=== PATIENT | male | born 1940 | race Caucasian/White ===

== ENCOUNTER → 2016-11-17 | Outpatient (CLI) | payer MEDICARE, OTHER ==
[~2016-11-17] MED LIST: ALLO300T2 PO; ASP81TEC PO; ASPI-983 PO; ATRV10T PO; CATHETER FLUSH 10 ML SYR IV PRN; CLCX200C PO; CLOP75TA28 PO; CLOP75TA69 PO; FERR325C PO; FERR325T24 PO; METO-351 PO; MULT-974 PO; OMEP20TA7 PO; TADA20TA PO; TRAZ100T92 PO; VALS1TAB15 PO
--- OUTSIDE RECORDS SUMMARY | 2016-11-17 11:46 | XMS REPORT | Continuity of Care Document ---
Author Author [facility] Organization [facility] Address Unknown Phone Unavailable Care Team Providers Care Pbx Mechanic Name Role Phone BRIGIDA PRECIADO MD PCP Insurance Providers Payer Name Policy Number Subscriber Name Relationship [employer] [id number] Jeremy Hemphill 18 Self / Same As Patient [id number] Jeremy Hemphill 20 Self / Same As Patient Advance Directives Directive Response Recorded Date/Time Advance Directives No 10/23/14 9:11am Health Care Power of Aligner Barrel And Receiver No 10/23/14 9:11am Organ Donor Yes 10/23/14 9:11am Resuscitation Status Full Code 10/23/14 9:11am Problems No known problems or medical conditions. Medications Medication Dose Route Sig Days/Qty Instructions Order Date Discontinued Date Status HCTZ/Valsartan 1 Each PO DAILY 09/18/11 Active Celecoxib 1 Each PO DAILY 09/18/11 Active Atorvastatin Calcium 1 Each PO DAILY 09/18/11 Active Aspirin 81 Mg PO DAILY 09/18/11 10/23/14 Discontinued Social History Social History Problem Response Recorded Date/Time Recent Foreign Travel No 10/23/2014 9:07am Smoking Status Never a Smoker 10/23/2014 9:05am Do you dip or chew tobacco? No 10/23/2014 9:05am Query Response Start Date Stop Date Smoking Status Never a Smoker Hospital Discharge Instructions No hospital discharge instructions. Plan of Care No plan of care. Functional Status No functional status results. Allergies, Adverse Reactions, Alerts Allergen Type Severity Reaction Status Last Updated No Known Drug Allergies Active 09/18/11 Immunizations Name Given Type Date of Influenza Vaccine 09/22/14 Historical Vital Signs Acute Vital Signs Vital Response Date/Time Temperature (Fahrenheit) 96.9 degrees F (97.6 - 99.5) Temperature (Calculated Celsius) 36.74540 degrees C (36.4 - 37.5) Temperature Source Tympanic Pulse Rate (adult) 50 bpm (60 - 90) Respiratory Rate 20 bpm (12 - 24) O2 Sat by Pulse Oximetry 94 % (88 - 100) Blood Pressure 127/76 mm Hg Pain Pain Intensity 0 Height (Feet) 5 feet Height (Inches) 8.00 inches Height (Calculated Centimeters) 172.634164 cm Weight (Pounds) 220 pounds Weight (Calculated Grams) 94359.322 gm Weight (Calculated Kilograms) 99.841437 kilograms Calculated BMI 33.45 Results No known relevant diagnostic tests, laboratory data and/or discharge summary. Procedures No known history of procedures. Encounters Encounter Location Date/Time Registered [facility] 10/23/14 7:57am Registered Clinic [facility] 10/17/14 7:17am
[2016-11-17 13:30] VITALS: BP 176/83
--- NOTE | 2016-11-19 08:13 | STRESS TEST ---
PROCEDURE PHYSICIAN: DAVID BROOKE DATE OF PROCEDURE: 11/17/2016 RESTING AND POST EXERCISE TECHNETIUM 99M TETROFOSMIN SPECT CT IMAGING: ORDERING PHYSICIAN: Amberly Oakley APRN PRIMARY PHYSICIAN: Dr. Malhotra OTHER PHYSICIAN: Dr. Brooke CLINICAL DIAGNOSIS: 1. Coronary artery disease. 2. Hypertension. 3. Hyperlipidemia. Baseline images were carried out after injection of 9.93 mCi technetium 99m tetrofosmin. Subsequently, exercise on a treadmill was carried out. Phil protocol was employed. Blood pressure response to exercise was somewhat hypertensive. Isolated premature contractions were seen during this study including couplets. There were no runs of ventricular tachycardia. After he had attained more than 85% of maximum heart rate, 29 mCi of technetium 99m tetrofosmin were injected and the exercise was continued for another minute. Exercise was stopped on account of fatigue. There was considerable baseline artifact at peak exercise. In the recovery phase, there appears to be approximately [address] segment depression. Review of images at rest and following stress, indicates a small to moderate basal inferior perfusion defect which is predominantly transient. Gated images show normal global left ventricular systolic function with normal regional wall motion. Left ventricular ejection fraction is calculated to be 52%. Left ventricular end-diastolic volume is 39 mL. TID is absent (1.05). CONCLUSIONS: 1. The study is indicative of a small to moderate amount of basal inferior ischemia. 2. Normal wall motion. 3. Normal global left ventricular systolic function with a calculated ejection fraction of 60%. 4. Normal left ventricular cavity size. 5. Frequent isolated and coupled premature ventricular ectopy during the study. 6. Hypertensive response of blood pressure to exercise. Job ID: [id number] Dictated Date: 11/18/2016 13:09:39 Media Supervisor Date: 11/19/2016 08:07:17 / yogi
== END ==
LOC: CARD 11:42
PROVIDERS: ATTEND Nurse Practitioner Family
DX: I25.10 Atherosclerotic heart disease of native coronary artery without angina pectoris (principal); I65.23 Occlusion and stenosis of bilateral carotid arteries; I10 Essential (primary) hypertension; E78.4 Other hyperlipidemia
CPT/HCPCS: 78452; 93017

== ENCOUNTER → 2017-06-17 | Outpatient (CLI) | payer MEDICARE, OTHER ==
[~2017-06-17] MED LIST changes: -CATHETER FLUSH 10 ML SYR IV PRN; +methylPREDNISolone 80 MG/ML (DEPO MEDROL) VIAL ONE
[2017-06-17 15:14] VITALS: BP 182/94
--- NOTE | 2017-06-22 12:09 | OPERATIVE REPORT ---
DATE OF SERVICE: DIAGNOSIS: Lumbar radiculopathy. PROCEDURE: Fluoroscopic guided interlaminar epidural steroid injection. PROCEDURE IN DETAIL: After obtaining informed consent from the patient, the patient's chart was reviewed. The patient was then brought to the procedure room and placed in the prone position. A timeout was performed. The back was prepped with antiseptic solution and under fluoro guidance, the patient's lumbar spine was identified at the level of L5-S1. The L5-S1 vertebra was identified with fluoro guidance and approximately 2 mL of 1.5% lidocaine solution was used to anesthetize the skin directly down to the pedicle of the L5-S1 and under fluoroscopic guidance, the tract was anesthetized up to the interlaminar space and the ligamentum flavum. This needle was withdrawn. Then, a 20-gauge 3.5 inch Tuohy needle was then directed following the same tract that was anesthetized with the spinal needle. Using loss of resistance, the epidural space was identified and then the syringe was switched for contrast solution which was injected, approximately 1 mL. After secondary confirmation of epidural access, another syringe was placed and 80 mg of Depo-Medrol was injected. The Tuohy needle was then flushed out with approximately 2 mL of the normal saline used from the loss of resistance syringe. Band-Aids were applied to all the procedure sites. The patient tolerated the procedure well and was taken to the recovery room in stable condition. COMPLICATIONS: None. Job ID: [id number] DocumentID: [id number] Dictated Date: 06/21/2017 10:47:27 Bi Lead Date: 06/21/2017 12:13:38 Dictated By: ALMAS CORONA DO
== END ==
LOC: CARD 14:44
PROVIDERS: ATTEND Pain Medicine Interventional Pain Medicine
DX: M54.16 Radiculopathy, lumbar region (principal); Z79.84 Long term (current) use of oral hypoglycemic drugs; Z79.899 Other long term (current) drug therapy
CPT/HCPCS: 62323

== ENCOUNTER → 2017-09-07 | Outpatient (CLI) | payer MEDICARE, OTHER ==
[~2017-09-07] MED LIST changes: -methylPREDNISolone 80 MG/ML (DEPO MEDROL) VIAL ONE
== END ==
LOC: CARD 13:00
PROVIDERS: ATTEND Internal Medicine Cardiovascular Disease
DX: I25.10 Atherosclerotic heart disease of native coronary artery without angina pectoris (principal); I65.23 Occlusion and stenosis of bilateral carotid arteries; E78.4 Other hyperlipidemia; E66.8 Other obesity; R73.01 Impaired fasting glucose
CPT/HCPCS: 93306; 93351

== ENCOUNTER 2017-10-26 07:52 | Day surgery (SDC) | payer MEDICARE, OTHER ==
[~2017-10-26] VITALS: Ht 172.7 cm; Wt 103.0 kg
[2017-10-26] VITALS (10 sets, daily range): BP systolic 119–165; BP diastolic 64–97
--- OUTSIDE RECORDS SUMMARY | 2017-10-26 07:54 | XMS REPORT ---
Author Author [facility] Medical Staff Organization [facility] Address [phone] [place], [place] [id number] Phone [phone] Summary purpose CCDA Sent to [facility] Chief Complaint and Reason for Visit Admit Diagnosis 1 SHOULDER JOINT REPLACEME Problem list No authorized problems tracked for continuity of care are available for this visit. Encounters No authorized problems tracked for encounter diagnoses are available for this visit. Medications No home medications recorded for this patient visit Allergies, adverse reactions, alerts No allergy information is available for this patient. Immunizations No immunizations recorded for this patient visit Relevant diagnostic tests and/or laboratory data No authorized results are available for this patient visit History of procedures Procedure Code Code Type Description Date Performed Performing Physician [id number] CPT-4 X-RAY EXAM OF SHOULDER 02-12-2015 JOAN GRAHAM Functional status No functional or cognitive status observations are available for this visit. Vital signs No authorized vital signs are available for this visit. Social history No Social History or smoking status observations were recorded for this visit. ( Unknown if ever smoked.) Treatment Plan No treatment plan text is available for this visit. Hospital discharge instructions No discharge instruction text is available for this visit.
--- OUTSIDE RECORDS SUMMARY | 2017-10-26 07:55 | XMS REPORT | Continuity of Care Document ---
Author Author [facility] Organization [facility] Address Unknown Phone Unavailable Allergies Active Description Code Type Severity Reaction Onset Reported/Identified Relationship to Patient Clinical Status Yes No Known Drug Allergies [id number] Drug Allergy Unknown N/A 09/18/2011 Medications There is no data. Problems Date Dx Coded Attending Type Code Diagnosis Diagnosed By 09/09/1199 MASHA LOUISE FACC, DAVID PIRES CCDS Ot Z48.812 ENCNTR FOR SURGICAL AFTCR FOLLOWING SURG 09/09/1199 DAVID FLANAGAN MD, FACC, FACP CCDS Ot Z95.5 PRESENCE OF CORONARY ANGIOPLASTY IMPLANT 09/18/2011 Ot 562.10 DIVERTICULOSIS COLON (W/O MENT OF HEMORR 09/18/2011 Ot 600.00 HYPERTROPHY (BENIGN) OF PROSTATE W/O URI 09/18/2011 Ot V12.72 PERSONAL HISTORY OF COLONIC POLYPS 09/18/2011 Ot V76.51 SCREEN MAL NEOP-COLON 01/28/2012 Ot 787.91 DIARRHEA 01/28/2012 Ot 789.00 ABDOMINAL PAIN, UNSPECIFIED SITE 09/13/2014 Ot 787.91 09/13/2014 Ot 789.00 09/18/2014 Ot 787.91 09/18/2014 Ot 789.00 10/18/2014 BRIGIDA PRECIADO MD Ot V72.84 10/23/2014 Ot 787.91 10/23/2014 Ot 789.00 10/23/2014 BRIGIDA PRECIADO MD Ot V72.84 10/23/2014 BRIGIDA PRECIADO MD Ot V72.84 10/23/2014 BRIGIDA PRECIADO MD Ot 211.3 BENIGN NEOPLASM LG BOWEL 10/23/2014 BRIGIDA PRECIADO MD Ot 562.10 DIVERTICULOSIS COLON (W/O MENT OF HEMORR 10/23/2014 BRIGIDA PRECIADO MD Ot V76.51 SCREEN MAL NEOP-COLON 01/30/2015 BRIGIDA PRECIADO MD Ot V72.84 01/30/2015 BRIGIDA PRECIADO MD Ot V72.84 02/12/2015 SANTOS LOUSIE, JOAN Earl V43.61 SHOULDER JOINT REPLACEME 01/29/2016 ILANA LOUISE, BRIGIDA Earl Ot D50.9 IRON DEFICIENCY ANEMIA, UNSPECIFIED 01/29/2016 ILANA LOUISE, BRIGIDA Earl Ot Z01.818 ENCOUNTER FOR OTHER PREPROCEDURAL EXAMIN 01/30/2016 BRIGIDA PRECIADO MD, Ot D50.9 IRON DEFICIENCY ANEMIA, UNSPECIFIED 01/30/2016 ILANA LOUISE, BRIGIDA Earl Ot Z01.818 ENCOUNTER FOR OTHER PREPROCEDURAL EXAMIN 01/31/2016 BRIGIDA PRECIADO MD, Ot D50.9 IRON DEFICIENCY ANEMIA, UNSPECIFIED 01/31/2016 ILANA LOUISE, BRIGIDA Earl Ot K44.9 DIAPHRAGMATIC HERNIA WITHOUT OBSTRUCTION 01/31/2016 ILANA LOUISE, BRIGIDA Earl Ot Z86.010 PERSONAL HISTORY OF COLONIC POLYPS 02/06/2016 ILANA LOUISE, BRIGIDA Earl Ot D50.9 IRON DEFICIENCY ANEMIA, UNSPECIFIED 02/06/2016 ILANA LOUISE, BRIGIDA Earl Ot Z01.818 ENCOUNTER FOR OTHER PREPROCEDURAL EXAMIN 02/07/2016 BRIGIDA PRECIADO MD, Ot D50.9 IRON DEFICIENCY ANEMIA, UNSPECIFIED 02/07/2016 ILANA LOUISE, BRIGIDA Earl Ot Z01.818 ENCOUNTER FOR OTHER PREPROCEDURAL EXAMIN 02/07/2016 BRIGIDA PRECIADO MD Ot D50.9 IRON DEFICIENCY ANEMIA, UNSPECIFIED 02/07/2016 BRIGIDA PRECIADO MD Ot K57.30 DVRTCLOS OF LG INT W/O PERFORATION OR AB 02/07/2016 BRIGIDA PRECIADO MD Ot K63.5 POLYP OF COLON 02/10/2016 BRIGIDA PRECIADO MD Ot D50.9 IRON DEFICIENCY ANEMIA, UNSPECIFIED 02/10/2016 BRIGIDA PRECIADO MD Ot K57.30 DVRTCLOS OF LG INT W/O PERFORATION OR AB 02/10/2016 BRIGIDA PRECIADO MD Ot K63.5 POLYP OF COLON 02/11/2016 BRIGIDA PRECIADO MD Ot D50.9 IRON DEFICIENCY ANEMIA, UNSPECIFIED 02/11/2016 BRIGIDA PRECIADO MD Ot K57.30 DVRTCLOS OF LG INT W/O PERFORATION OR AB 02/11/2016 BRIGIDA PRECIADO MD Ot K63.5 POLYP OF COLON 02/18/2016 Ot 787.91 DIARRHEA 02/18/2016 Ot 789.00 ABDOMINAL PAIN, UNSPECIFIED SITE 02/18/2016 ILANA LOUISE, BRIGIDA Earl Ot V72.84 EXAM PRE-OPERATIVE NOS 02/18/2016 BRIGIDA PRECIADO MD Ot V72.84 EXAM PRE-OPERATIVE NOS 02/19/2016 MASHA LOUISE FACC, ALI FACP CCDS Ot D50.9 IRON DEFICIENCY ANEMIA, UNSPECIFIED 02/19/2016 MASHA LOUISE FACC, ALI FACP CCDS Ot E78.0 PURE HYPERCHOLESTEROLEMIA 02/19/2016 MASHA LOUISE FACC, ALI FACP CCDS Ot I12.9 HYPERTENSIVE CHRONIC KIDNEY DISEASE W ST 02/19/2016 MASHA LOUISE FACC, ALI FACP CCDS Ot I25.110 ATHSCL HEART DISEASE OF [place] COR ART W 02/19/2016 MASHA LOUISE FACC, ALI FACP CCDS Ot I25.84 CORONARY ATHEROSCLEROSIS DUE TO CALCIFIE 02/19/2016 MASHA LOUISE FACC, ALI FACP CCDS Ot N18.4 CHRONIC KIDNEY DISEASE, STAGE 4 (SEVERE) 02/19/2016 MASHA LOUISE FACC, ALI FACP CCDS Ot Z79.899 OTHER FOREIGN CORRESPONDENT (CURRENT) DRUG THERAPY 02/24/2016 EMMY GALLAGHER L [employer]URAL MAIL [employer] Ot E78.0 PURE HYPERCHOLESTEROLEMIA 02/24/2016 DEYA GALLAGHERHER L RURAL MAIL [employer]OR Ot I10 ESSENTIAL (PRIMARY) HYPERTENSION 02/24/2016 EMMY GALLAGHER L [employer] MAIL [employer]OR Ot I25.119 ATHSCL HEART DISEASE OF [place] ART W 02/24/2016 EMMY GALLAGHER L [employer] MAIL [employer] Ot R06.02 SHORTNESS OF BREATH 02/24/2016 EMMY GALLAGHER L [employer] MAIL [employer] Ot R73.01 IMPAIRED FASTING GLUCOSE 02/24/2016 DEYA GALLAGHERHER L RURAL MAIL [employer]OR Ot Z86.2 PRSNL HISTORY OF DIS OF THE BLD/BLD-FORM 02/24/2016 EMMY GALLAGHER L [employer]URAL MAIL [employer] Ot Z95.5 PRESENCE OF CORONARY ANGIOPLASTY IMPLANT 02/25/2016 EMMY GALLAGHER L [employer]URAL MAIL [employer]OR Ot D64.9 ANEMIA, UNSPECIFIED 02/25/2016 EMMY GALLAGHER L RURAL MAIL [employer]OR Ot E78.0 PURE HYPERCHOLESTEROLEMIA 02/25/2016 EMMY GALLAGHER L RURAL MAIL [employer]OR Ot I10 ESSENTIAL (PRIMARY) HYPERTENSION 02/25/2016 BAIMA, EMMY L RURAL MAIL [employer]OR Ot I25.10 ATHSCL HEART DISEASE OF [place] CORONARY 02/25/2016 DEYA GALLAGHERHER L RURAL MAIL [employer]OR Ot R06.02 SHORTNESS OF BREATH 03/02/2016 MASHA LOUISE FACC, ALI FACP CCDS Ot D50.9 IRON DEFICIENCY ANEMIA, UNSPECIFIED 03/02/2016 MASHA LOUISE FACC, ALI FACP CCDS Ot E78.0 PURE HYPERCHOLESTEROLEMIA 03/02/2016 MASHA LOUISE FACC, ALI FACP CCDS Ot I12.9 HYPERTENSIVE CHRONIC KIDNEY DISEASE W ST 03/02/2016 MASHA ALMARAZC, ALI FACP CCDS Ot I25.110 ATHSCL HEART DISEASE OF [place] ART W 03/02/2016 MASHA LOUISE FACC, ALI FACP CCDS Ot I25.84 CORONARY ATHEROSCLEROSIS DUE TO CALCIFIE 03/02/2016 MASHA LOUISE FACC, ALI FACP CCDS Ot N18.4 CHRONIC KIDNEY DISEASE, STAGE 4 (SEVERE) 03/02/2016 MASHA LOUISE FACC, ALI FACP CCDS Ot Z79.899 OTHER SNF (CURRENT) DRUG THERAPY 03/17/2016 DEYA GALLAGHERHER L [employer] MAIL [employer] Ot E78.0 PURE HYPERCHOLESTEROLEMIA 03/17/2016 ELLIOTT EMMY L RURAL MAIL [employer]OR Ot I10 ESSENTIAL (PRIMARY) HYPERTENSION 03/17/2016 ELLIOTT EMMY L RURAL MAIL [employer]OR Ot I25.119 ATHSCL HEART DISEASE OF [place] ART W 03/17/2016 LORENGOLDIE EMMY L [employer] MAIL [employer]OR Ot R06.02 SHORTNESS OF BREATH 03/17/2016 DEYA GALLAGHERHER L [employer] MAIL [employer]OR Ot R73.01 IMPAIRED FASTING GLUCOSE 03/17/2016 DEYA GALLAGHERHER L R[employer] MAIL [employer]OR Ot Z86.2 PRSNL HISTORY OF DIS OF THE BLD/BLD-FORM 03/17/2016 DEYA GALLAGHERHER L [employer] MAIL [employer]OR Ot Z95.5 PRESENCE OF CORONARY ANGIOPLASTY IMPLANT 03/27/2016 DEYA GALLAGHERHER L [employer] MAIL [employer]OR Ot D64.9 ANEMIA, UNSPECIFIED 03/27/2016 ELLIOTT EMMY L RURAL MAIL [employer]OR Ot E78.0 PURE HYPERCHOLESTEROLEMIA 03/27/2016 LORENMA EMMY L [employer]URAL MAIL [employer]OR Ot I10 ESSENTIAL (PRIMARY) HYPERTENSION 03/27/2016 ELLIOTT EMMY L RURAL MAIL [employer]OR Ot I25.10 ATHSCL HEART DISEASE OF [place] CORONARY 03/27/2016 DEYA GALLAGHERHER L R[employer] MAIL [employer]OR Ot R06.02 SHORTNESS OF BREATH 04/15/2016 MASHA LOUISE FACC, ALI FACP CCDS Ot Z48.812 ENCNTR FOR SURGICAL AFTCR FOLLOWING SURG 04/15/2016 MASHA LOUISE FAC, ALI FACP CCDS Ot Z95.5 PRESENCE OF CORONARY ANGIOPLASTY IMPLANT 04/21/2016 MASHA LOUISE FACSean, ALI FACP CCDS Ot Z48.812 ENCNTR FOR SURGICAL AFTCR FOLLOWING SURG 04/21/2016 MASHA LOIUSE FAC, ALI FACP CCDS Ot Z95.5 PRESENCE OF CORONARY ANGIOPLASTY IMPLANT 05/02/2016 BRIGIDA PRECIADO MD Ot D50.0 IRON DEFICIENCY ANEMIA SECONDARY TO BLOO 05/02/2016 BRIGIDA PRECIADO MD Ot E78.5 HYPERLIPIDEMIA, UNSPECIFIED 05/02/2016 BRIGIDA PRECIADO MD Ot E86.1 HYPOVOLEMIA 05/02/2016 BRIGIDA PRECIADO MD Ot I10 ESSENTIAL (PRIMARY) HYPERTENSION 05/02/2016 BRIGIDA PRECIADO MD Ot I25.10 ATHSCL HEART DISEASE OF [place] CORONARY 05/02/2016 BRIGIDA PRECIADO MD Ot K55.20 ANGIODYSPLASIA OF COLON WITHOUT HEMORRHA 05/02/2016 BRIGIDA PRECIADO MD Ot K57.30 DVRTCLOS OF LG INT W/O PERFORATION OR AB 05/02/2016 BRIGIDA PRECIADO MD Ot K92.2 GASTROINTESTINAL HEMORRHAGE, UNSPECIFIED 05/02/2016 BRIGIDA PRECIADO MD Ot Z79.02 FOREIGN CORRESPONDENT (CURRENT) USE OF ANTITHROMBOTI 05/02/2016 BRIGIDA PRECIADO MD Ot Z95.5 PRESENCE OF CORONARY ANGIOPLASTY IMPLANT 05/02/2016 BRIGIDA PRECIADO MD Ot D50.0 IRON DEFICIENCY ANEMIA SECONDARY TO BLOO 05/02/2016 BRIGIDA PRECIADO MD, Ot E78.5 HYPERLIPIDEMIA, UNSPECIFIED 05/02/2016 BRIGIDA PRECIADO MD Ot E86.1 HYPOVOLEMIA 05/02/2016 BRIGIDA PRECIADO MD Ot I10 ESSENTIAL (PRIMARY) HYPERTENSION 05/02/2016 BRIGIDA PRECIADO MD Ot I25.10 ATHSCL HEART DISEASE OF [place] CORONARY 05/02/2016 BRIGIDA PRECIADO MD Ot K55.20 ANGIODYSPLASIA OF COLON WITHOUT HEMORRHA 05/02/2016 BRIGIDA PRECIADO MD, Ot K57.30 DVRTCLOS OF LG INT W/O PERFORATION OR AB 05/02/2016 BRIGIDA PRECIADO MD Ot K92.2 GASTROINTESTINAL HEMORRHAGE, UNSPECIFIED 05/02/2016 BRIGIDA PRECIADO MD Ot Z79.02 FOREIGN CORRESPONDENT (CURRENT) USE OF ANTITHROMBOTI 05/02/2016 BRIGIDA PRECIADO MD Ot Z95.5 PRESENCE OF CORONARY ANGIOPLASTY IMPLANT 06/16/2016 MASHA LOUISE FAC, ALI FACP CCDS Ot Z48.812 ENCNTR FOR SURGICAL AFTCR FOLLOWING SURG 06/16/2016 MASHA LOUISE FACC, ALI FACP CCDS Ot Z95.5 PRESENCE OF CORONARY ANGIOPLASTY IMPLANT 07/01/2016 MASHA LOUISE FACC, ALI FACP CCDS Ot Z48.812 ENCNTR FOR SURGICAL AFTCR FOLLOWING SURG 07/01/2016 MASHA LOUISE FACSean, ALI FACP CCDS Ot Z95.5 PRESENCE OF CORONARY ANGIOPLASTY IMPLANT 08/25/2016 Ot 787.91 DIARRHEA 08/25/2016 Ot 789.00 ABDOMINAL PAIN, UNSPECIFIED SITE 08/25/2016 BRIGIDA PRECIADO MD Ot V72.84 EXAM PRE-OPERATIVE NOS 08/25/2016 BRIGIDA PRECIADO MD Ot V72.84 EXAM PRE-OPERATIVE NOS 08/25/2016 EMMY GALLAGHER L [employer] MAIL [employer] Ot E78.0 PURE HYPERCHOLESTEROLEMIA 08/25/2016 ELLIOTT EMMY L [employer] MAIL [employer]OR Ot I10 ESSENTIAL (PRIMARY) HYPERTENSION 08/25/2016 EMMY GALLAGHER L [employer] MAIL [employer]OR Ot I25.119 ATHSCL HEART DISEASE OF [place] ART W 08/25/2016 EMMY GALLAGHER L [employer] MAIL [employer]OR Ot R06.02 SHORTNESS OF BREATH 08/25/2016 ELLIOTT EMMY L [employer]URAL MAIL [employer]OR Ot R73.01 IMPAIRED FASTING GLUCOSE 08/25/2016 DEYA GALLAGHERHER L [employer] MAIL [employer] Ot Z86.2 PRSNL HISTORY OF DIS OF THE BLD/BLD-FORM 08/25/2016 DEYA GALLAGHERHER L RURAL MAIL [employer]OR Ot Z95.5 PRESENCE OF CORONARY ANGIOPLASTY IMPLANT 08/25/2016 DEYA GALLAGHERHER L [employer] MAIL [employer]OR Ot D64.9 ANEMIA, UNSPECIFIED 08/25/2016 ELLIOTT EMMY L RURAL MAIL [employer]OR Ot E78.0 PURE HYPERCHOLESTEROLEMIA 08/25/2016 ELLIOTT EMMY L RURAL MAIL [employer]OR Ot I10 ESSENTIAL (PRIMARY) HYPERTENSION 08/25/2016 EMMY GALLAGHER RURAL MAIL [employer]OR Ot I25.10 ATHSCL HEART DISEASE OF [place] CORONARY 08/25/2016 EMMY GALLAGHER [employer] MAIL [employer]OR Ot R06.02 SHORTNESS OF BREATH 08/26/2016 BRIANDA SERRANO MD Ot M51.37 OTHER INTERVERTEBRAL DISC DEGENERATION, 08/26/2016 BRIANDA SERRANO MD Ot M51.37 OTHER INTERVERTEBRAL DISC DEGENERATION, 08/31/2016 BRIANDA SERRANO MD Ot M51.37 OTHER INTERVERTEBRAL DISC DEGENERATION, 09/08/2016 MASHA ALMARAZC, ALI FACP CCDS Ot I10 ESSENTIAL (PRIMARY) HYPERTENSION 09/08/2016 MASHA ALMARAZC, ALI FACP CCDS Ot I25.10 ATHSCL HEART DISEASE OF [place] CORONARY 09/08/2016 MASHA ALMARAZC, ALI FACP CCDS Ot I65.23 OCCLUSION AND STENOSIS OF [place] 09/08/2016 MASHA LOUISE FACC, ALI FACP CCDS Ot R73.01 IMPAIRED FASTING GLUCOSE 09/08/2016 MASHA LOUISE FACC, ALI FACP CCDS Ot Z86.2 PRSNL HISTORY OF DIS OF THE BLD/BLD-FORM 09/15/2016 BRIANDA SERRANO MD Ot M51.37 OTHER INTERVERTEBRAL DISC DEGENERATION, 09/28/2016 MASHA LOUISE FACC, ALI FACP CCDS Ot I25.10 ATHSCL HEART DISEASE OF [place] CORONARY 09/28/2016 MASHA LOUISE FACC, ALI FACP CCDS Ot I10 ESSENTIAL (PRIMARY) HYPERTENSION 09/28/2016 MASHA LOUISE FACC, ALI FACP CCDS Ot I25.10 ATHSCL HEART DISEASE OF [place] CORONARY 09/28/2016 MASHA ALMARAZC, ALI FACP CCDS Ot I65.23 OCCLUSION AND STENOSIS OF [place] 09/29/2016 MASHA LOUISE FACC, ALI FACP CCDS Ot I10 ESSENTIAL (PRIMARY) HYPERTENSION 09/29/2016 MASHA LOUISE FACC, ALI FACP CCDS Ot I25.10 ATHSCL HEART DISEASE OF [place] CORONARY 09/29/2016 MASHA LOUISE FACC, ALI FACP CCDS Ot I65.23 OCCLUSION AND STENOSIS OF [place] 09/29/2016 MASHA LOUISE FACC, ALI FACP CCDS Ot R73.01 IMPAIRED FASTING GLUCOSE 09/29/2016 MASHA ALMARAZC, ALI FACP CCDS Ot Z86.2 PRSNL HISTORY OF DIS OF THE BLD/BLD-FORM 09/29/2016 MASHA ALMARAZC, ALI FACP CCDS Ot I10 ESSENTIAL (PRIMARY) HYPERTENSION 09/29/2016 MASHA ALMARAZC, ALI FACP CCDS Ot I25.10 ATHSCL HEART DISEASE OF [place] CORONARY 09/29/2016 MASHA LOUISE FACC, ALI FACP CCDS Ot I65.23 OCCLUSION AND STENOSIS OF [place] 10/06/2016 BRIANDA SERRANO MD Ot M51.37 OTHER INTERVERTEBRAL DISC DEGENERATION, 10/21/2016 MASHA LOUISE FACC, ALI FACP CCDS Ot I10 ESSENTIAL (PRIMARY) HYPERTENSION 10/21/2016 MASHA LOUISE FACC, ALI FACP CCDS Ot I25.10 ATHSCL HEART DISEASE OF [place] CORONARY 10/21/2016 MASHA LOUISE FACC, ALI FACP CCDS Ot I65.23 OCCLUSION AND STENOSIS OF [place] 10/21/2016 MASHA LOUISE FACC, ALI FACP CCDS Ot R73.01 IMPAIRED FASTING GLUCOSE 10/21/2016 MASHA LOUISE FACC, ALI FACP CCDS Ot Z86.2 PRSNL HISTORY OF DIS OF THE BLD/BLD-FORM 10/23/2016 MASHA LOUISE FACC, ALI FACP CCDS Ot I10 ESSENTIAL (PRIMARY) HYPERTENSION 10/23/2016 MASHA LOUISE FACC, ALI FACP CCDS Ot I25.10 ATHSCL HEART DISEASE OF [place] CORONARY 10/23/2016 MASHA LOUISE FACC, ALI FACP CCDS Ot I65.23 OCCLUSION AND STENOSIS OF [place] 11/10/2016 MASHA LOUISE FACC, ALI FACP CCDS Ot I10 ESSENTIAL (PRIMARY) HYPERTENSION 11/10/2016 MASHA LOUISE FACC, ALI FACP CCDS Ot I25.10 ATHSCL HEART DISEASE OF [place] CORONARY 11/10/2016 MASHA LOUISE FACC, ALI FACP CCDS Ot I65.23 OCCLUSION AND STENOSIS OF [place] 11/18/2016 BAIMAEMMY L RURAL MAIL [employer]OR Ot E78.4 OTHER HYPERLIPIDEMIA 11/18/2016 BAIMA, EMMY L RURAL MAIL [employer]OR Ot I10 ESSENTIAL (PRIMARY) HYPERTENSION 11/18/2016 BAIMA, EMMY L RURAL MAIL [employer]OR Ot I25.10 ATHSCL HEART DISEASE OF [place] CORONARY 11/18/2016 BAIMA, EMMY L RURAL MAIL [employer]OR Ot I65.23 OCCLUSION AND STENOSIS OF [place] 11/23/2016 BAIMA, EMMY L RURAL MAIL [employer]OR Ot E78.4 OTHER HYPERLIPIDEMIA 11/23/2016 BAIMA, EMMY L RURAL MAIL CONTRACTOR Ot I10 ESSENTIAL (PRIMARY) HYPERTENSION 11/23/2016 BAIMA, EMMY L RURAL MAIL CONTRACTOR Ot I25.10 ATHSCL HEART DISEASE OF [place] CORONARY 11/23/2016 BAIMA, EMMY L RURAL MAIL [employer]OR Ot I65.23 OCCLUSION AND STENOSIS OF [place] 12/11/2016 BAIMA, EMMY L RURAL MAIL CONTRACTOR Ot E78.4 OTHER HYPERLIPIDEMIA 12/11/2016 BAIMA, EMMY L RURAL MAIL CONTRACTOR Ot I10 ESSENTIAL (PRIMARY) HYPERTENSION 12/11/2016 BAIMA, EMMY L RURAL MAIL CONTRACTOR Ot I25.10 ATHSCL HEART DISEASE OF [place] CORONARY 12/11/2016 BAIMA EMMY L RURAL MAIL [employer]OR Ot I65.23 OCCLUSION AND STENOSIS OF [place] 01/06/2017 BAIMA EMMY L RURAL MAIL CONTRACTOR Ot E78.4 OTHER HYPERLIPIDEMIA 01/06/2017 BAIMA, EMMY L RURAL MAIL CONTRACTOR Ot I10 ESSENTIAL (PRIMARY) HYPERTENSION 01/06/2017 BAIMA, EMMY L RURAL MAIL CONTRACTOR Ot I25.10 ATHSCL HEART DISEASE OF [place] CORONARY 01/06/2017 BAIMA EMMY L [employer]URAL MAIL [employer]OR Ot I65.23 OCCLUSION AND STENOSIS OF [place] 06/16/2017 Ot 787.91 DIARRHEA 06/16/2017 Ot 789.00 ABDOMINAL PAIN, UNSPECIFIED SITE 06/16/2017 ILANA LOUISE, BRIGIDA Earl Ot V72.84 EXAM PRE-OPERATIVE NOS 06/16/2017 BRIGIDA PRECIADO MD Ot V72.84 EXAM PRE-OPERATIVE NOS 06/16/2017 LORENDEYA AMEZCUAHER L RURAL MAIL CONTRACTOR Ot E78.0 PURE HYPERCHOLESTEROLEMIA 06/16/2017 BAIMA, EMMY L RURAL MAIL [employer]OR Ot I10 ESSENTIAL (PRIMARY) HYPERTENSION 06/16/2017 BAIMA EMMY L RURAL MAIL [employer]OR Ot I25.119 ATHSCL HEART DISEASE OF [place] COR ART W 06/16/2017 ELLIOTT EMMY L [employer] MAIL [employer]OR Ot R06.02 SHORTNESS OF BREATH 06/16/2017 LORENGOLDIE EMMY L [employer]URAL MAIL [employer]OR Ot R73.01 IMPAIRED FASTING GLUCOSE 06/16/2017 ELLIOTT EMMY L RURAL MAIL [employer]OR Ot Z86.2 PRSNL HISTORY OF DIS OF THE BLD/BLD-FORM 06/16/2017 BAIEMMY AMEZCUA RURAL MAIL CONTRACTOR Ot Z95.5 PRESENCE OF CORONARY ANGIOPLASTY IMPLANT 06/16/2017 EMMY GALLAGHER RURAL MAIL [employer]OR Ot D64.9 ANEMIA, UNSPECIFIED 06/16/2017 MEMY GALLAGHER L RURAL MAIL [employer]OR Ot E78.0 PURE HYPERCHOLESTEROLEMIA 06/16/2017 LORENGOLDIE EMMY L RURAL MAIL [employer]OR Ot I10 ESSENTIAL (PRIMARY) HYPERTENSION 06/16/2017 BAIDEYA AMEZCUAHER L RURAL MAIL CONTRACTOR Ot I25.10 ATHSCL HEART DISEASE OF [place] CORONARY 06/16/2017 LORENEMMY AMEZCUA L RURAL MAIL CONTRACTOR Ot R06.02 SHORTNESS OF BREATH 06/16/2017 MAGGIE LOUISE, BRIANDA Romero Ot M51.37 OTHER INTERVERTEBRAL DISC DEGENERATION, 06/16/2017 MASHA LOUISE FACC, ALI FACP CCDS Ot I10 ESSENTIAL (PRIMARY) HYPERTENSION 06/16/2017 MASHA LOUISE FACC, ALI FACP CCDS Ot I25.10 ATHSCL HEART DISEASE OF [place] CORONARY 06/16/2017 MASHA LOUISE FACC, DAVID FACP CCDS Ot I65.23 OCCLUSION AND STENOSIS OF [place] 06/16/2017 MASHA LOUISE FACC, ALI FACP CCDS Ot R73.01 IMPAIRED FASTING GLUCOSE 06/16/2017 MASHA LOUISE FACC, ALI FACP CCDS Ot Z86.2 PRSNL HISTORY OF DIS OF THE BLD/BLD-FORM 06/16/2017 MASHA LOUISE FACC, DAVID FACP CCDS Ot I10 ESSENTIAL (PRIMARY) HYPERTENSION 06/16/2017 MASHA LOUISE FACC, ALI FACP CCDS Ot I25.10 ATHSCL HEART DISEASE OF [place] CORONARY 06/16/2017 MASHA LOUISE FACC, ALI FACP CCDS Ot I65.23 OCCLUSION AND STENOSIS OF [place] 06/16/2017 LORENEMMY AMEZCUA RURAL MAIL CONTRACTOR Ot E78.4 OTHER HYPERLIPIDEMIA 06/16/2017 LORENGOLDIE EMMY L RURAL MAIL [employer]OR Ot I10 ESSENTIAL (PRIMARY) HYPERTENSION 06/16/2017 LORENGODLIE EMMY L RURAL MAIL CONTRACTOR Ot I25.10 ATHSCL HEART DISEASE OF [place] CORONARY 06/16/2017 LORENDEYA AMEZCUAHER L RURAL MAIL CONTRACTOR Ot I65.23 OCCLUSION AND STENOSIS OF [place] 06/25/2017 ALMAS CORONA DO Ot M54.16 RADICULOPATHY, LUMBAR REGION 06/25/2017 ALMAS CORONA DO Ot Z79.84 SNF (CURRENT) USE OF ORAL HYPOGLYC 06/25/2017 ALMAS CORONA DO Ot Z79.899 OTHER SNF (CURRENT) DRUG THERAPY 07/15/2017 ALMAS CORONA DO Ot M54.16 RADICULOPATHY, LUMBAR REGION 07/15/2017 AMLAS CORONA DO Ot Z79.84 FOREIGN CORRESPONDENT (CURRENT) USE OF ORAL HYPOGLYC 07/15/2017 ALMAS CORONA DO Ot Z79.899 OTHER FOREIGN CORRESPONDENT (CURRENT) DRUG THERAPY 08/18/2017 ALMAS CORONA DO Ot M54.16 RADICULOPATHY, LUMBAR REGION 08/18/2017 ALMAS CORONA DO Ot Z79.84 FOREIGN CORRESPONDENT (CURRENT) USE OF ORAL HYPOGLYC 08/18/2017 ALMAS CORONA DO Ot Z79.899 OTHER SNF (CURRENT) DRUG THERAPY 09/13/2017 MASHA LOUISE FACC, DAVID FACP CCDS Ot E66.8 OTHER OBESITY 09/13/2017 MASHA LOUISE FACC, ALI FACP CCDS Ot E78.4 OTHER HYPERLIPIDEMIA 09/13/2017 MASHA ALMARAZ, ALI FACP CCDS Ot I25.10 ATHSCL HEART DISEASE OF [place] CORONARY 09/13/2017 MASHA ALMARAZ, ALI FACP CCDS Ot I65.23 OCCLUSION AND STENOSIS OF [place] 09/13/2017 MASHA ALMARAZ, ALI FACP CCDS Ot R73.01 IMPAIRED FASTING GLUCOSE 10/01/2017 MASHA LOUISE FACC, ALI FACP CCDS Ot E66.8 OTHER OBESITY 10/01/2017 MASHA LOUISE FACC, ALI FACP CCDS Ot E78.4 OTHER HYPERLIPIDEMIA 10/01/2017 MASHA ALMARAZ, ALI FACP CCDS Ot I25.10 ATHSCL HEART DISEASE OF [place] CORONARY 10/01/2017 MASHA ALMARAZ, ALI FACP CCDS Ot I65.23 OCCLUSION AND STENOSIS OF [place] 10/01/2017 MASHA ALMARAZ, ALI FACP CCDS Ot R73.01 IMPAIRED FASTING GLUCOSE Procedures Code [place] [id number] X-RAY EXAM OF SHOULDER JOAN GRAHAM MD 02/12/2015 Results There is no data. Encounters ACCT No. Visit Date/Time Discharge Status Pt. Type Provider Facility Loc./Unit Complaint [id number] 08/23/2014 11:05:25 08/23/2014 23:59:59 CLS Outpatient Raudel-AmiraBriseida [id number] 02/12/2015 09:29:00 02/12/2015 23:59:59 CLS Outpatient SANTOS LOUISE, JOAN [facility] OTHER [id number] 09/07/2017 13:00:00 09/07/2017 23:59:59 CLS Outpatient MASHA LOUISE FACC, ALI FACP CCDS [facility] CARD I25.10 CAD [id number] 08/30/2017 10:58:00 08/30/2017 23:59:59 CLS Preadmit MASHA LOUISE FACC, ALI FACP CCDS [facility] CARD I25.10 CAD [id number] 06/17/2017 14:44:00 06/17/2017 23:59:59 CLS Outpatient ALMAS CORONA DO [facility] CARD LUMBAR RADICULOPATHY [id number] 11/17/2016 11:42:00 11/17/2016 23:59:59 CLS Outpatient LORENGOLDIEEMMY [employer] [facility] CARD CAD,HLD [id number] 09/28/2016 08:42:00 09/28/2016 23:59:59 CLS Outpatient MASHA LOUISE FACC, ALI FACP CCDS [facility] CARD CAD,CAROTID ARTERIAL DISEASE,HTN [id number] 09/07/2016 07:33:00 09/07/2016 23:59:59 CLS Outpatient MASHA LOUISE FACC, ALI FACP CCDS [facility] CARD CAD,HTN [id number] 08/25/2016 09:24:00 08/25/2016 23:59:59 CLS Outpatient BRIANDA SERRANO MD [facility] RAD LOW BACK PAIN [id number] 07/01/2016 10:30:00 07/01/2016 12:00:00 DIS Outpatient MASHA LOUISE FACC, ALI FACP CCDS [facility] CR STENT [id number] 05/01/2016 13:51:00 05/02/2016 15:59:00 DIS Inpatient BRIGIDA PRECIADO MD [facility] ICU ANEMIA GI BLEED HYPOTENSION [id number] 02/24/2016 10:21:00 02/24/2016 23:59:59 CLS Outpatient LORENGOLDIE EMMYHER Shanique SOLORZANO [facility] LAB CAD, HYPERTENSION, ANEMIA, SOB [id number] 02/21/2016 09:46:00 02/21/2016 23:59:59 CLS Outpatient LORENGOLDIE EMMYHER Shanique BHATP [facility] LAB CAD,SOB [id number] 02/18/2016 07:10:00 02/19/2016 10:15:00 DIS Outpatient MASHA LOUISE FACC, DAVID PIRES CCDS [facility] CATH ANGINA,SOB, HLP,HTN [id number] 02/07/2016 07:29:00 02/07/2016 10:05:00 DIS Outpatient BRIGIDA PRECIADO MD [facility] ANEMIA [id number] 02/06/2016 05:47:00 02/06/2016 12:22:00 DIS Outpatient BRIGIDA PRECIADO MD [facility] PREOP ANEMIA [id number] 01/31/2016 08:24:00 01/31/2016 10:40:00 DIS Outpatient BRIGIDA PRECIADO MD [facility] ANEMIA IRON DEFENCENCY [id number] 01/29/2016 05:56:00 01/29/2016 13:51:00 DIS Outpatient BRIGIDA PRECIADO MD [facility] PREOP ANEMIA,IRON DEFENCECY [id number] 10/23/2014 07:57:00 10/23/2014 10:10:00 DIS Outpatient BRIGIDA PRECIADO MD [facility] HX COLON POLYPS [id number] 10/17/2014 07:17:00 10/17/2014 23:59:59 CLS Outpatient BRIGIDA PRECIADO MD [facility] PREOP SCREENING [id number] 09/19/2014 09:21:00 09/19/2014 23:59:59 CLS Outpatient BRIGIDA PRECIADO MD [facility] PREOP HX COLON POLYPS [id number] 10/26/2017 10:00:00 PEN Preadmit MASHA LOUISE FACC, DAVID PIRES CCDS [facility] CAD SOB,HLP [id number] 01/29/2012 00:00:00 Document Registration [id number] 10/30/2011 09:44:00 Document Registration [id number] 09/18/2011 07:11:00 Document Registration [id number] 05/18/2017 10:20:00 05/18/2017 23:59:59 DIS Outpatient JES SERVIN [facility]
[2017-10-26] MEDS ORDERED: HEParin (CATH LAB) 2,000 ML IV ONE (07:58)
[2017-10-26] MEDS ORDERED: NS IV 1000 ML 1,000 ML ONE (07:58)
[2017-10-26] MEDS ORDERED: LIDOCAINE 1% INJ 50 ML (XYLOCAINE) VIAL ONE (07:58)
[2017-10-26] MEDS ORDERED: NS IV 1000 ML 1,000 ML IV SCH ×2 (08:30→10:25)
[2017-10-26 08:52] LABS: HEMOGLOBIN 15.1 G/DL (13.3-17.7); MEAN PLATELET VOLUME 10.2 FL (7.4-10.4); RED BLOOD COUNT 4.97 10^6/uL (4.35-5.85); RED CELL DISTRIBUTION WIDTH 14.6 % (10.0-14.5); WHITE BLOOD COUNT 8.2 10^3/uL (4.3-11.0)
[2017-10-26 09:02] LABS: INR 1.1 (0.8-1.4); PROTHROMBIN TIME PATIENT 14.1 SEC (12.2-14.7)
--- NOTE | 2017-10-26 09:11 | Cardiac Procedure Note-CS/ASA ---
Pre-Procedure Note Pre-Op Procedure Note H&P Reviewed The H&P was reviewed, patient examined and no changes noted. Date H&P Reviewed: Oct 26, 2017 Time H&P Reviewed: 09:10 Conscious Sedation Pre-Proced Time Reviewed: 09:10 ASA Class: 3 Airway Mallampati Classification: (alturas appropriate class) I. II. III, IV Lungs Heart ASA score ASA 1: a normal healthy patient ASA 2: a patient with a mild systemic disease (mid diabetes, controlled hypertension, obesity ASA 3: a patient with a severe systemic disease that limits activity (angina , COPD, prior Myocardial infarction) ASA 4: a patient with an incapacitating disease that is a constant threat to life (CHF, renal failure) ASA 5: a moribund patient not expected to survive 24 hrs. (ruptured aneurysm) ASA 6: a declared brain patient whose organs are being harvested. For emergent operations, add the letter E after the classification Grade 2 Sedation Plan: Analgesia, Amnesia, Plan communicated to team members, Discussed options with patient/fam, Discussed risks with patient/fam Note The patient is an appropriate candidate to undergo the planned procedure, sedation, and anesthesia. The patient immediately re-assessed prior to indication. DAVID FLANAGAN MD FACP FAC CCDS Oct 26, 2017 09:11
[2017-10-26 09:12] LABS: ALANINE AMINOTRANSFERASE 75 U/L (0-55); ALKALINE PHOSPHATASE 48 U/L (40-136); BILIRUBIN,TOTAL 1.1 MG/DL (0.1-1.0); BUN/CREATININE RATIO 26; CALCIUM 9.5 MG/DL (8.5-10.1); CARBON DIOXIDE 23 MMOL/L (21-32); CHLORIDE 108 MMOL/L (98-107); CHOLESTEROL 139 MG/DL (< 200); CREATININE SERUM 0.82 MG/DL (0.60-1.30); GFR ESTIMATED > 60; GLUCOSE 135 MG/DL (70-105); HDL CHOLESTEROL 41 MG/DL (40-60); POTASSIUM 4.1 MMOL/L (3.6-5.0); SODIUM 142 MMOL/L (135-145); TOTAL PROTEIN 7.4 GM/DL (6.4-8.2); TRIGLYCERIDES 75 MG/DL (<150); VLDL CHOLESTEROL 15 MG/DL (5-40)
[2017-10-26] MEDS ORDERED: VALS320T14 PO (09:17)
[2017-10-26] MEDS ORDERED: MIDAZOLAM 5 MG/5 ML (VERSED) VIAL ONE (09:17)
[2017-10-26] MEDS ORDERED: ASPI-586 PO (09:17)
[2017-10-26] MEDS ORDERED: fentaNYL INJECTION 100 MCG/2 ML AMP ONE (09:17)
[2017-10-26] MEDS ORDERED: diphenhydrAMINE 50 MG/ML INJ (BENADRYL) ONE (09:17)
[2017-10-26] MEDS ORDERED: NITROGLYCERIN DRIP 25 MG/D5W 0 ML IV ONE (09:59)
[2017-10-26] MEDS ORDERED: HEParin 1000 UNIT/ML (10ML VIAL) FOR BOLUS ONE (09:59)
[2017-10-26] MEDS ORDERED: ADENOSINE 3 MG/1 ML (ADENOSCAN) 30ML VIAL IV ONE (09:59)
[2017-10-26] MEDS ORDERED: PATIENT MAY USE OWN MEDS, ALL PO SCH (10:30)
[2017-10-26] MEDS ORDERED: ASPI-999 PO (10:31)
--- NOTE | 2017-10-26 10:32 | Discharge Inst-Cardiology ---
Discharge Inst-Cardiac Discharge Medications New Medications: Aspirin (Aspirin) 81 Mg Tab.chew 81 MG PO DAILY, #90 TAB 3 Refills Continued Medications: Atorvastatin Calcium (Lipitor 10 Mg) 10 Mg Tablet 10 MG PO HS, TAB Celecoxib (Celebrex) 200 Mg Capsule 200 MG PO WEEK PRN for PAIN, CAP Metoprolol Succinate (Toprol Xl) 25 Mg Tab.er.24h 25 MG PO DAILY, TAB Omeprazole (Omeprazole) 20 Mg Tablet.dr 20 MG PO DAILY, TAB Tadalafil (Cialis) 20 Mg Tablet 20 MG PO UD PRN for ED, TAB Valsartan (Valsartan) 320 Mg Tablet 320 MG PO DAILY, TAB Discontinued Medications: Aspirin (Aspir 81) 81 Mg Tablet.dr 81 MG PO DAILY, TAB Patient Instructions Patient Instructions: Change aspirin to 81 mg chewable aspirin everyday instead of coated aspirin Orders-Post D/C & Referrals Pneu Vac Indicated: Yes DAVID FLANAGAN MD FACP [facility] Oct 26, 2017 10:32
--- NOTE | 2017-10-26 10:33 | Discharge Inst-Post CATH ---
Discharge Inst-CATH Post Cardiac Cath D/C Inst Follow Up/Plan F/u at Dr Brooke's for placement of Zio patch on 10/27/17 F/u with Dr Brooke for doctor visit in one month CARDIAC CATH DISCHARGE INSTRUCTIONS *Hold Metformin for 48 hours post heart cath. ACTIVITY * Go Home directly and rest. * Limit activity of the leg (or wrist if it was used) for 7 days including aerobics, swimming, jogging, bicycling, etc. * Restrict stair-climbing for 7 days if possible, if not, climb up with your non -cath leg, then bring together on the same step. * Avoid lifting, pushing, pulling or excessive movement of the affected extremity for 7 days. * Customary sexual activity may be resumed after 2 days-use caution not to use a position that strains or causes pain to the affected extremity. * No driving for 24 hours. * NO SMOKING. * Avoid straining for bowel movements for 7 days. * Gentle walking on level ground is allowed. * Returning to work will depend on the type of procedure and the results. Your doctor will discuss this with you. CALL YOUR DOCTOR FOR ANY OF THE FOLLOWING: *If bleeding from the puncture site occurs- Apply gentle pressure to site with clean cloth and call your doctor or EMS. * If a knot or lump forms under the skin, increases in size, or causes pain. * If bruising appears to be worsening or moving further down your leg instead of disappearing. * Temperature above 101 F. CARE OF YOUR GROIN INCISION; * Bruising or purple discoloration of the skin near the puncture site is common. * You may shower only, no bathtub bathing for 5 days. Be careful to avoid slipping as your leg may feel stiff. * If a closure device was used on your femoral artery, please see the attached guide regarding care of the device and your leg. * REMOVE the dressing from your groin the next day after your procedure in the shower. CARE OF YOUR WRIST INCISION; * Bruising or purple discoloration of the skin near the puncture site is common. * You may shower. * DO NOT submerge wrist. * Remove dressing in 24 hours. DAVID BROOKE MD FACP [facility] Oct 26, 2017 10:33
--- NOTE | 2017-10-26 13:14 | CARDIAC CATHETERIZATION ---
DATE OF SERVICE: 10/26/2017 The patient is a 76-year-old man with known coronary artery disease, who recently had a stress echo, which was abnormal (frequent premature ventricular contractions during the study). Cardiac catheterization was carried out today after having obtained an informed consent. DESCRIPTION OF PROCEDURE: He was brought to the cardiac catheterization laboratory in a fasting state. Right groin was prepared and draped in the usual sterile fashion. A 1% lidocaine for local anesthesia. Modified Seldinger technique was used to advance a 5-Dominican sheath for the right femoral artery, 5-Dominican JL4 catheter for left coronary angiography, 5-Dominican Patric right catheter was used for right coronary angiography. A 5-Dominican pigtail catheter was used for left heart catheterization and left ventricular angiography. FRACTIONAL FLOW RESERVE MEASUREMENT IN THE LEFT CIRCUMFLEX Fractional flow reserve measurement in the first obtuse marginal branch to left circumflex artery. Following completion of the diagnostic procedure, we carried out fractional flow reserve measurement in the first obtuse marginal branch, noted the patient had an approximately 50% angiographic stenosis. To evaluate the hemodynamic significance, we carried out fractional flow reserve measurement. We exchanged the sheath for a long 6-Dominican sheath. We used a 6-Dominican JL4 guide catheter. We advanced the pressure wire across the lesion in the proximal first obtuse marginal branch and the tip was placed distally. We infused adenosine 140 mcg per kilogram per minute for 2-1/2 minutes. Fractional flow reserve was measured at 0.86, indicating hemodynamic nonsignificance. He tolerated the procedure well. The equipment was removed. The long 6-Dominican sheath in the right femoral artery was exchanged for a small 6-Dominican sheath and angiography of the right femoral artery was carried out through the sheath. Mynx was used to achieve hemostasis. He tolerated the procedure well. HEMODYNAMICS: Left ventricular end-diastolic pressure following coronary angiography was 14 mmHg. There was no significant pressure gradient on pullback across the aortic valve. The ascending aortic pressure was 144/64 with a mean of 93 mmHg. CORONARY ANGIOGRAPHY: Diffuse heavy coronary calcification is seen. Left main coronary artery does not exhibit significant obstructive disease. Left anterior descending artery has diffuse moderate disease. There is a widely patent stent in its mid portion without any significant in-stent restenosis. The left circumflex artery is nondominant. It has a sizable first obtuse marginal branch with 50% proximal stenosis and fractional flow reserve across this lesion is 0.86, indicating hemodynamic non-significance. The right coronary artery is completely occluded in its proximal portion and is heavily collateralized from the left coronary system. LEFT VENTRICULAR ANGIOGRAPHY: Left ventricular angiography was carried out in right anterior oblique projection. Global left ventricular systolic function is well preserved. Left ventricular ejection fraction is 55% to 60%. There does not appear to be significant mitral regurgitation. CONCLUSIONS: 1. Coronary artery disease primarily consisting of proximal occlusion of the right coronary artery with collateralization from the left coronary system. There is a widely patent stent in the mid left anterior descending artery. The first obtuse marginal branch of the left circumflex artery has 50% stenosis with a fractional flow reserve was 0.86 (hemodynamically nonsignificant). 2. Well-preserved global left ventricular systolic function with ejection fraction of 55% to 60%. 3. Left ventricular end-diastolic pressure at the top limit of normal to mildly elevated. 4. No significant mitral regurgitation. DISCUSSION AND RECOMMENDATIONS: Based on the results of the study, it appears appropriate to continue a conservative approach. Risk factor modification has been discussed. Current regimen is being continued. Outpatient followup is advised. Job ID: [id number] DocumentID: [id number] Dictated Date: 10/26/2017 11:16:36 Sustainable Development Policy Analyst Date: 10/26/2017 13:13:32 Dictated By: DAVID FLANAGAN MD, MA, FACP, FACC, MTDD
== END 2017-10-26 14:00 | disposition home or self-care (01) ==
LOC: CATH 07:52 → SURG 10:48 → CATH 14:00
PROVIDERS: ATTEND Internal Medicine Cardiovascular Disease
DX: I25.10 Atherosclerotic heart disease of native coronary artery without angina pectoris (principal); I10 Essential (primary) hypertension; E78.5 Hyperlipidemia, unspecified; G47.33 Obstructive sleep apnea (adult) (pediatric); R73.01 Impaired fasting glucose; D50.9 Iron deficiency anemia, unspecified; E66.9 Obesity, unspecified; Z68.34 Body mass index [BMI] 34.0-34.9, adult; Z95.5 Presence of coronary angioplasty implant and graft; Z96.611 Presence of right artificial shoulder joint; Z79.82 Long term (current) use of aspirin; Z79.899 Other long term (current) drug therapy
CPT/HCPCS: 36415; 36430; 80053; 80061; 85027; 85610; 85730; 87081; 93005; 93458; 93567; 93571

== ENCOUNTER → 2018-09-06 | Outpatient (CLI) | payer MEDICARE, OTHER ==
[~2018-09-06] MED LIST changes: +ASPI-586 PO; +ASPI-999 PO; +TRAZ-190 PO; -TRAZ100T92 PO; +VALS320T15 PO
== END ==
LOC: CARD 10:20
PROVIDERS: ATTEND Internal Medicine Cardiovascular Disease
DX: I25.10 Atherosclerotic heart disease of native coronary artery without angina pectoris (principal); I10 Essential (primary) hypertension; E78.5 Hyperlipidemia, unspecified; I77.89 Other specified disorders of arteries and arterioles
CPT/HCPCS: 93351

== ENCOUNTER → 2018-09-12 | Outpatient (CLI) | payer MEDICARE, OTHER | LOC: CARD 08:28 | PROVIDERS: ATTEND Internal Medicine Cardiovascular Disease | DX: I48.0 Paroxysmal atrial fibrillation (principal); I25.10 Atherosclerotic heart disease of native coronary artery without angina pectoris; E78.5 Hyperlipidemia, unspecified; I10 Essential (primary) hypertension; I47.2 Ventricular tachycardia | CPT/HCPCS: 93225; 93226 ==

== ENCOUNTER → 2019-02-27 | Day surgery (SDC) | payer MEDICARE, OTHER ==
[~2019-02-27] VITALS: Ht 172.7 cm; Wt 103.0 kg
[~2019-02-27] MED LIST changes: +LIDOCAINE 1% INJ 20 ML 20 ML VIAL ONE
[2019-02-27 11:10] VITALS: BP 181/99
--- NOTE | 2019-02-27 11:50 | Implantation of Loop Monitor ---
Implant of Loop Monitior PROCEDURE PHYSICIAN: Kenn Ruth MD IMPLANTATION OF LOOP MONITOR REPORT DATE OF PROCEDURE: 02/27/19 ATTENDING PHYSICIAN: Dr. Gui Ruth. PERFORMING PHYSICIAN: Dr. Gui Ruth. INDICATION: Palpitations, Long-term surveillance of paroxysmal atrial fibrillation PREOP DIAGNOSIS: Palpitations, Long-term surveillance of paroxysmal atrial fibrillation POSTOP DIAGNOSIS: Palpitations, Long-term surveillance of paroxysmal atrial fibrillation, s/p implantation of loop recorder. PROCEDURE DETAILS: The patient is a 78 male with history of Palpitations, Long-term surveillance of paroxysmal atrial fibrillation is recommended. Therefore implantable loop recorder was discussed and agreed with the patient. Informed consent was taken. All risks and complications were discussed at length. The patient was draped and prepped in the usual sterile fashion. Local anesthesia was lidocaine, which was given in the substernal area close to the 4th intercostal space. Loop monitor was implanted according to the protocol. Steri-Strips were placed at the end of the procedure. There were no complications and the patient tolerated the procedure well. ANESTHESIA: Local anesthesia with lidocaine. COMPLICATIONS: None CONTRAST/FLUOROSCOPY: None CONCLUSION: 1. Successful implantation of loop monitor for palpitations, PAF. 2. No complication and the patient tolerated the procedure well. Kenn Ruth MD, [facility], CCDS Cardiac Electrophysiology Luis RUTH MD February 27, 2019 11:50 am
== END ==
LOC: CATH 11:00
PROVIDERS: ATTEND Internal Medicine Interventional Cardiology
DX: I48.0 Paroxysmal atrial fibrillation (principal); I25.10 Atherosclerotic heart disease of native coronary artery without angina pectoris; I49.5 Sick sinus syndrome; M19.91 Primary osteoarthritis, unspecified site; I77.89 Other specified disorders of arteries and arterioles; E78.00 Pure hypercholesterolemia, unspecified; E78.5 Hyperlipidemia, unspecified; I10 Essential (primary) hypertension; R73.01 Impaired fasting glucose; G47.33 Obstructive sleep apnea (adult) (pediatric); Z96.611 Presence of right artificial shoulder joint; Z79.01 Long term (current) use of anticoagulants; Z95.5 Presence of coronary angioplasty implant and graft; Z79.82 Long term (current) use of aspirin; Z79.899 Other long term (current) drug therapy
CPT/HCPCS: 33285

== ENCOUNTER 2019-05-30 10:11 | Day surgery (SDC) | payer MEDICARE, OTHER ==
[~2019-05-30] VITALS: Ht 172.7 cm; Wt 93.0 kg
[2019-05-30] VITALS (8 sets, daily range): BP systolic 115–179; BP diastolic 66–100
[~2019-05-30 10:11] MED LIST changes: -LIDOCAINE 1% INJ 20 ML 20 ML VIAL ONE
[2019-05-30] MEDS ORDERED: HEParin (CATH LAB) 2,000 ML IV ONE (10:16)
[2019-05-30] MEDS ORDERED: LIDOCAINE 1% INJ 20 ML 20 ML VIAL ONE (10:16)
[2019-05-30] MEDS ORDERED: NS IV 1000 ML 1,000 ML IV SCH ×2 (10:16→11:46)
[2019-05-30 10:44] LABS: HEMOGLOBIN 15.5 G/DL (13.3-17.7); MEAN PLATELET VOLUME 9.8 FL (7.4-10.4); RED CELL DISTRIBUTION WIDTH 14.2 % (10.0-14.5)
[2019-05-30] MEDS ORDERED: MIDAZOLAM 5 MG/5 ML (VERSED) VIAL ONE (10:48)
[2019-05-30] MEDS ORDERED: fentaNYL INJECTION 100 MCG/2 ML AMP ONE (10:48)
[2019-05-30] MEDS ORDERED: APIX5TAB PO (10:55)
[2019-05-30 10:57] LABS: INR 1.1 (0.8-1.4); PROTHROMBIN TIME PATIENT 14.4 SEC (12.2-14.7)
[2019-05-30 11:05] LABS: ALANINE AMINOTRANSFERASE 50 U/L (0-55); ALBUMIN 4.1 GM/DL (3.2-4.5); ALKALINE PHOSPHATASE 50 U/L (40-136); BILIRUBIN,TOTAL 0.9 MG/DL (0.1-1.0); BUN/CREATININE RATIO 24; CALCIUM 9.6 MG/DL (8.5-10.1); CARBON DIOXIDE 24 MMOL/L (21-32); CHLORIDE 108 MMOL/L (98-107); CHOLESTEROL 138 MG/DL (< 200); CREATININE SERUM 0.93 MG/DL (0.60-1.30); GFR ESTIMATED > 60; GLUCOSE 126 MG/DL (70-105); HDL CHOLESTEROL 44 MG/DL (40-60); POTASSIUM 4.4 MMOL/L (3.6-5.0); SODIUM 141 MMOL/L (135-145); TOTAL PROTEIN 7.5 GM/DL (6.4-8.2); TRIGLYCERIDES 70 MG/DL (<150); VLDL CHOLESTEROL 14 MG/DL (5-40)
--- NOTE | 2019-05-30 11:45 | Cardiac Procedure Note-CS/ASA ---
Pre-Procedure Note Pre-Op Procedure Note H&P Reviewed The H&P was reviewed, patient examined and no changes noted. Date H&P Reviewed: May 30, 2019 Time H&P Reviewed: 11:10 Conscious Sedation Pre-Proced Time 11:10 ASA Score 3 For ASA 3 and 4: Consider anesthesia and medical clearance. Also, for patients with a history of failed moderate sedation consider anesthesia. Airway Lungs Heart ASA score ASA 1: a normal healthy patient ASA 2: a patient with a mild systemic disease (mid diabetes, controlled hypertension, obesity ASA 3: a patient with a severe systemic disease that limits activity (angina, COPD, prior Myocardial infarction) ASA 4: a patient with an incapacitating disease that is a constant threat to life (CHF, renal failure) ASA 5: a moribund patient not expected to survive 24 hrs. (ruptured aneurysm) ASA 6: a declared brain- patient whose organs are being harvested. For emergent operations, add the letter E after the classification Mallampati Classification Grade 2 Sedation Plan Analgesia, Amnesia, Plan communicated to team members, Discussed options with patient/fam, Discussed risks with patient/fam The patient is an appropriate candidate to undergo the planned procedure, sedation, and anesthesia. The patient immediately re-assessed prior to indication. DAVID FLANAGAN MD FACP [facility] May 30, 2019 11:45
--- NOTE | 2019-05-30 11:49 | Discharge Inst-Post CATH ---
Discharge Inst-CATH/EP Problems Reviewed?: Yes Post Cardiac Cath/EP D/C Inst Follow Up/Plan F/u with Dr Brooke in 2 weeks ACTIVITY * Go Home directly and rest. * Limit activity of the leg (or wrist if it was used) for 7 days including aerobics, swimming, jogging, bicycling, etc. * Restrict stair-climbing for 7 days if possible, if not, climb up with your non-cath leg, then bring together on the same step. * Avoid lifting, pushing, pulling or excessive movement of the affected extremity for 7 days. * Customary sexual activity may be resumed after 2 days-use caution not to use a position that strains or causes pain to the affected extremity. * No driving for 24 hours. * NO SMOKING. * Avoid straining for bowel movements for 7 days. * Gentle walking on level ground is allowed. * Returning to work will depend on the type of procedure and the results. Your doctor will discuss this with you. CALL YOUR DOCTOR FOR ANY OF THE FOLLOWING: *If bleeding from the puncture site occurs- Apply gentle pressure to site with clean cloth and call your doctor or EMS. * If a knot or lump forms under the skin, increases in size, or causes pain. * If bruising appears to be worsening or moving further down your leg instead of disappearing. * Temperature above 101 F. CARE OF YOUR GROIN INCISION; * Bruising or purple discoloration of the skin near the puncture site is common. * You may shower only, no bathtub bathing for 5 days. Be careful to avoid slipping as your leg may feel stiff. * If a closure device was used on your femoral artery, please see the attached guide regarding care of the device and your leg. * Leave dressing on FOR 24 hours. CARE OF YOUR WRIST INCISION; * Bruising or purple discoloration of the skin near the puncture site is common. * You may shower. * DO NOT submerge wrist. * Leave dressing on FOR 24 hours. DAVID BROOKE MD FACP [facility] May 30, 2019 11:49
--- NOTE | 2019-05-30 11:50 | Discharge Inst-Cardiology ---
Discharge Inst-Cardiac Problems Reviewed?: Yes Discharge Medications Continued Medications: Apixaban (Eliquis) 5 Mg Tablet 5 MG PO BID, TAB Aspirin (Aspirin) 81 Mg Tab.chew 81 MG PO DAILY, #90 TAB 3 Refills Atorvastatin Calcium (Lipitor 10 Mg) 10 Mg Tablet 10 MG PO HS, TAB Celecoxib (Celebrex) 200 Mg Capsule 200 MG PO WEEK PRN for PAIN, CAP Metoprolol Succinate (Toprol Xl) 25 Mg Tab.er.24h 25 MG PO DAILY, TAB Omeprazole (Omeprazole) 20 Mg Tablet.dr 40 MG PO DAILY, TAB Valsartan (Valsartan) 320 Mg Tablet 320 MG PO DAILY, TAB Orders-Post D/C & Referrals Pneu Vac Indicated: Yes DAVID FLANAGAN MD FACP [facility] May 30, 2019 11:50
[2019-05-30] MEDS ORDERED: PATIENT MAY USE OWN MEDS, ALL PO SCH (12:00)
--- NOTE | 2019-05-30 12:00 | NUR ---
1ST DEGREE AV BLOCK NOT 2ND DEGREE BLOCK.
--- NOTE | 2019-05-30 12:19 | CARDIAC CATHETERIZATION ---
DATE OF SERVICE: 05/30/2019 CARDIAC CATHETERIZATION REPORT INDICATIONS: The patient is a 78-year-old man who is known to have coronary artery disease and has previously had coronary interventions. Lately, he has had recurrent chest discomfort suggestive of recurrent angina. Cardiac catheterization was carried out today after having obtained an informed consent. DESCRIPTION OF PROCEDURE: He was brought to the cardiac catheterization laboratory in a fasting state. Right groin was prepared and draped in the usual sterile fashion. Lidocaine 1% was used for local anesthesia. Modified Seldinger technique was used to advance a 5-Lebanese sheath in the right femoral artery, 5-Lebanese JL4 catheter was used for left coronary angiography, 5-Lebanese JR4 catheter for right coronary angiography, 5-Lebanese pigtail catheter was used for left heart catheterization and left ventricular angiography. Pigtail was pulled back to the aortic arch and aortic arch angiography was performed. The catheter was removed. Angiography of the right femoral artery was carried out through the sheath. Mynx was used to achieve hemostasis. He tolerated the procedure well. HEMODYNAMICS: Left ventricular end-diastolic pressure following coronary angiography was 6 mmHg. There was no significant pressure gradient on pullback across the aortic valve. Ascending aortic pressure was 137/65 with a mean of 93 mmHg. CORONARY ANGIOGRAPHY: Left main coronary artery does not exhibit significant obstructive disease. There is diffuse coronary plaque and calcification. Left anterior descending artery has a widely patent stent in its mid portion. The first diagonal branch, left anterior descending artery has 30-40% proximal stenosis. The left circumflex artery has diffuse mild plaque. Right coronary artery is occluded at its ostium and is collateralized by the left coronary system. LEFT VENTRICULAR ANGIOGRAPHY: Left ventricular angiography was carried out in the right anterior oblique projection. Global left ventricular systolic function normal. No distinct regional wall motion abnormalities seen. Left ventricular ejection fraction is 65%. AORTIC ARCH ANGIOGRAPHY: There is calcification within the aortic knob. There is no significant aortic dissection or aneurysm within the thoracic aorta, to the extent visualized. The neck arteries, to the extent visualized, exhibit significant tortuosity and mild proximal disease and calcification. No distinct obstructive disease is seen in this view of the neck vessels. CONCLUSIONS: 1. Coronary artery disease primarily consisting of chronic total occlusion of the ostial right coronary that is collateralized from the left coronary system. There is a widely patent stent in the mid left anterior descending. The left coronary system has mild disease. The left anterior descending artery stent is known to be Promus 2.5 x 24 mm (placed in 2016). 2. Well preserved global left ventricular systolic function with ejection fraction of 65%. 3. Normal left ventricular end-diastolic pressure. DISCUSSION AND RECOMMENDATIONS: Based on results of the study, it appears appropriate to continue a conservative approach. Risk factor modification has been reviewed. Current regimen is being continued. Outpatient followup is advised. Job ID: [id number] DocumentID: [id number] Dictated Date: 05/30/2019 11:40:17 Platinumsmith Date: 05/30/2019 12:18:56 Dictated By: DAVID FLANAGAN MD, MA, FACP, FACC,
== END 2019-05-30 15:00 | disposition home or self-care (01) ==
LOC: CATH 10:11 → SDC 12:05 → CATH 15:00
PROVIDERS: ATTEND Internal Medicine Cardiovascular Disease
DX: I25.10 Atherosclerotic heart disease of native coronary artery without angina pectoris (principal); M19.90 Unspecified osteoarthritis, unspecified site; R53.82 Chronic fatigue, unspecified; E78.00 Pure hypercholesterolemia, unspecified; D64.9 Anemia, unspecified; E78.5 Hyperlipidemia, unspecified; I10 Essential (primary) hypertension; R73.01 Impaired fasting glucose; G47.33 Obstructive sleep apnea (adult) (pediatric); I48.0 Paroxysmal atrial fibrillation; I49.5 Sick sinus syndrome; E66.9 Obesity, unspecified; Z68.31 Body mass index [BMI] 31.0-31.9, adult; Z79.01 Long term (current) use of anticoagulants; Z79.82 Long term (current) use of aspirin; Z82.49 Family history of ischemic heart disease and other diseases of the circulatory system; Z96.611 Presence of right artificial shoulder joint
CPT/HCPCS: 36221; 36415; 80053; 80061; 85027; 85610; 85730; 87081; 93005; 93458

== ENCOUNTER 2019-08-13 18:33 | Emergency (ER) | payer MEDICARE, OTHER ==
[~2019-08-13] VITALS: Ht 172 cm; Wt 88.6 kg
[~2019-08-13 18:33] MED LIST changes: +APIX5TAB PO
[2019-08-13] MEDS ORDERED: ASPIRIN 81 MG CHEW (CHILDREN'S ASA) PO ONE (18:45)
[2019-08-13] MEDS ORDERED: NITROGLYCERIN 0.4 MG SL TABS BTL 25'S SL PRN (18:45)
[2019-08-13] MEDS ORDERED: RT-ALBUTEROL/IPRATROPIUM 3 ML (DUONEB) VIAL INH ONE (18:45)
--- NOTE | 2019-08-13 19:03 | ED Chest Pain ---
General Stated Complaint: CP Source: patient History of Present Illness Date Seen by Provider: Aug 13, 2019 Time Seen by Provider: 18:32 Initial Comments PT ARRIVES VIA POV FROM HOME C/O CHEST PAIN STATES PAIN IS IN CENTER OF CHEST AND IT FEELS VERY TIGHT STATES HE HAS HAD IT ALL DAY, STATES HE HAS HAD IT FOR THE LAST 6 MONTHS, AND IS GETTING WORSE, AND IT OFTEN WAKES HIM UP AT NIGHT. IS ALSO WORSE WITH ANY EXERTION PT DOES NOT HAVE HOME NTG. PT HAS HX OF CAD AND HAS STENT X 1--PLACED 3 1/2 YEARS AGO.. LAST CATH 05/30/19--PATENT STENT IN LAD, WITH COMPLETE OCCLUSION OF RCA WITH COLLATERALS/SIMILAR TO PREVIOUS. NO INTERVENTION PT HAS PAROXYSMAL ATRIAL FIB/RVR AND IS ON ELIQUIS, AND HAD LOOP RECORDER PLACED 02/27/19. DENIES ANY PALPITATIONS TODAY PT ALSO C/O SHORTNESS OF BREATH, ESPECIALLY ON EXERTION, IS ALSO AN ONGOING PROBLEM AND IS GETTING WORSE. PT DENIES ANY HISTORY OF RESPIRATORY PROBLEMS, DOES NOT HAVE HOME O2. HAS NEVER SMOKED. STATES THAT HE HAS "ALLERGIES" THAT CAUSE HIM TO HAVE CHEST CONGESTION AND COUGH, BUT STATES THE LAST WEEK HIS COUGH HAS BEEN MUCH WORSE, AND HAS BEEN AROUND PEOPLE WHO HAVE BEEN ILL WITH RESPIRATORY ILLNESSES RECENTLY DENIES FEVER. NO SWEATS OR CHILLS NO SWELLING IN LEGS OR PAIN IN CALVES. STATES PAIN WAS 6-7/10 JUST PRIOR TO ARRIVAL, IS 3/[address] FLANAGAN THIS PAST WEDNESDAY FOR ROUTINE FOLLOW UP. NO CHANGES IN MEDICATIONS OR DOSES HAS ROUTINE FOLLOW UP WITH DR. MARINA ON WEDNESDAY. DENIES ANY MISSED DOSES OF MEDICATIONS. PCP: DR. PRECIADO [employer]--SEES DR. FLANAGAN AND DR. MARINA Allergies and Home Medications Allergies Coded Allergies: No Known Drug Allergies (Unverified , 09/18/11) Home Medications Apixaban 5 Mg Tablet, 5 MG PO BID, (Reported) Aspirin 81 Mg Tab.chew, 81 MG PO DAILY Prescribed by: DAVID FLANAGAN on 10/26/17 1031 Atorvastatin Calcium 10 Mg Tablet, 10 MG PO HS, (Reported) Celecoxib 200 Mg Capsule, 200 MG PO WEEK PRN for PAIN, (Reported) Metoprolol Succinate 25 Mg Tab.er.24h, 25 MG PO DAILY, (Reported) Omeprazole 20 Mg Tablet.dr, 40 MG PO DAILY, (Reported) Valsartan 320 Mg Tablet, 320 MG PO DAILY, (Reported) Patient Home Medication List Home Medication List Reviewed: Yes Review of Systems Review of Systems Constitutional: no symptoms reported; No chills, No diaphoresis, No dizziness, No fever EENTM: See HPI, Nose Congestion Respiratory: See HPI, Cough, Orthopnea, Shortness of Air, SOA With Exertion, SOA at Rest; Denies Wheezing Cardiovascular: See HPI, Chest Pain; Denies Edema, Denies Irregular Heart Rate, Denies Lightheadedness, Denies Palpitations, Denies Syncope Gastrointestinal: No Symptoms Reported; Denies Abdominal Pain, Denies Nausea, Denies Vomiting Genitourinary: No Symptoms Reported Musculoskeletal: no symptoms reported; No back pain Skin: no symptoms reported Psychiatric/Neurological: No Symptoms Reported Endocrine: No Symptoms Reported Hematologic/Lymphatic: No Symptoms Reported Past Ilnmcqn-Hebpwr-Pnikum Hx Patient Social History Alcohol Use: Occasionally Uses Alcohol Beverage of Choice: [employer] Recreational Drug Use: No Smoking Status: Never a Smoker Recent Foreign Travel: No Contact w/Someone Who Travel: No Recent Hopitalizations: No Immunizations Up To Date Date of Influenza Vaccine: Jul 26, 2017 Seasonal Allergies Seasonal Allergies: No Past Medical History Surgeries: Yes (CARDIAC CATHS --STENT X 1 TO LAD--LAST CATH 05/30/19--NO INTERVENTION/PATENT STENT; LEFT KNEE SURGERY; RIGHT SHOULDER REPLACEMENT; COLONOSCOPIES; LOOP RECORDER 02/27/19) Cardiac, Coronary Stent, Joint Replacement, Orthopedic, Tonsillectomy Respiratory: Yes (SLEEP APNEA, USES C-PAP) Sleep Apnea Currently Using CPAP: Yes Currently Using BIPAP: No Cardiac: Yes (CARDIAC CATH --STENT TO LAD X 1 02/2016; LOOP RECORDER 02/27/19 FOR PAROXYSMAL ATRIAL FIB/RVR; CATH 05/30/19--NO INTERVETION, PATENT STENT TO LAD, COMPLETE OCCLUSION RCA WITH COLLATERAL CIRCULATION/SIMILAR TO PREVIOUS; CAROTID DISEASE--NO INTEVENTION) Atrial Fibrillation, Coronary Artery Disease, High Cholesterol, Hypertension, Irregular Heartbeat Neurological: No Reproductive Disorders: No Genitourinary: No Gastrointestinal: Yes Gastroesophageal Reflux, Polyps Musculoskeletal: Yes (LEFT KNEE SURGERY; RIGHT SHOULDER REPLACEMENT) Arthritis HEENT: Yes Cataract Loss of Vision: Denies Hearing Impairment: Denies Cancer: No Psychosocial: No Integumentary: No Blood Disorders: Yes (ANEMIA) Family Medical History Abdominal aortic aneurysm G8 SISTER Arthritis 19 MOTHER Hypertension 19 MOTHER Physical Exam Vital Signs Vital Signs - First Documented 08/13/19 19:09 O2 Flow Rate 10.00 Capillary Refill : Height, Weight, BMI Height: 5'8.00" Weight: 205lbs. 0.0oz. [id number]; 31.2 BMI Method:Stated General Appearance: Anxious, Mild Distress (MILDLY DYSPNEIC ) Neck: Full Range of Motion, Normal Inspection, Non Tender, Supple; No Carotid Bruit, No JVD Respiratory: Decreased Breath Sounds (DECREASED AERATION BILATERALLY, ESPECIALLY IN BASES, WITH BIBASILAR RALES), Rales (BIBASILAR RALES); No Rhonci, No Wheezing; Other (MILDLY DYSPNEIC) Cardiovascular: Regular Rate, Rhythm, No Edema, No Gallop, No JVD, No Murmur, Normal Peripheral Pulses Gastrointestinal: Normal Bowel Sounds, No Organomegaly, Non Tender, Soft Extremity: Normal Capillary Refill, Normal Inspection, Normal Range of Motion, Non Tender, No Calf Tenderness, No Pedal Edema Neurologic/Psychiatric: Alert, Oriented x3, No Motor/Sensory Deficits, 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 Norm as Tested Skin: Normal Color, Warm/Dry; No Rash Focused Exam Lactate Level 08/13/19 19:25: Lactic Acid Level 1.81 Lactic Acid Level Laboratory Tests Test 08/13/19 19:25 Lactic Acid Level 1.81 MMOL/L (0.50-2.00) Progress/Results/Core Measures Results/Orders Lab Results Laboratory Tests Test 08/13/19 18:45 08/13/19 18:50 08/13/19 19:25 Range/Units White Blood Count 11.6 H 4.3-11.0 10^3/uL Red Blood Count 4.78 4.35-5.85 10^6/uL Hemoglobin 15.2 13.3-17.7 G/DL Hematocrit 46 40-54 % Mean Corpuscular Volume 96 80-99 FL Mean Corpuscular Hemoglobin 32 25-34 PG Mean Corpuscular Hemoglobin Concent 33 32-36 G/DL Red Cell Distribution Width 16.3 H 10.0-14.5 % Platelet Count 248 130-400 10^3/uL Mean Platelet Volume 9.5 7.4-10.4 FL Neutrophils (%) (Auto) 65 42-75 % Lymphocytes (%) (Auto) 21 12-44 % Monocytes (%) (Auto) 11 0-12 % Eosinophils (%) (Auto) 3 0-10 % Basophils (%) (Auto) 0 0-10 % Neutrophils # (Auto) 7.5 1.8-7.8 X 10^3 Lymphocytes # (Auto) 2.5 1.0-4.0 X 10^3 Monocytes # (Auto) 1.2 H 0.0-1.0 X 10^3 Eosinophils # (Auto) 0.3 0.0-0.3 10^3/uL Basophils # (Auto) 0.0 0.0-0.1 10^3/uL Prothrombin Time 17.3 H 12.2-14.7 SEC INR Comment 1.4 0.8-1.4 Activated Partial Thromboplast Time 38 H 24-35 SEC Sodium Level 140 135-145 MMOL/L Potassium Level 3.9 3.6-5.0 MMOL/L Chloride Level 105 98-107 MMOL/L Carbon Dioxide Level 20 L 21-32 MMOL/L Anion Gap 15 H 5-14 MMOL/L Blood Urea Nitrogen 28 H 7-18 MG/DL Creatinine 1.28 0.60-1.30 MG/DL Estimat Glomerular Filtration Rate 55 BUN/Creatinine Ratio 22 Glucose Level 130 H 70-105 MG/DL Calcium Level 9.3 8.5-10.1 MG/DL Corrected Calcium 9.4 8.5-10.1 MG/DL Magnesium Level 1.9 1.6-2.4 MG/DL Total Bilirubin 1.4 H 0.1-1.0 MG/DL Aspartate Amino Transf (AST/SGOT) 51 H 5-34 U/L Alanine Aminotransferase (ALT/SGPT) 25 0-55 U/L Alkaline Phosphatase 74 40-136 U/L Total Creatine Kinase 387 H 30-200 U/L Creatine Kinase MB 25.3 *H <6.6 NG/ML Myoglobin 119.6 H 10.0-92.0 NG/ML Troponin I 3.322 *H <0.028 NG/ML B-Type Natriuretic Peptide 921.2 H <100.0 PG/ML Total Protein 7.6 6.4-8.2 GM/DL Albumin 3.9 3.2-4.5 GM/DL Amylase Level 32 25-125 U/L Lipase 11 8-78 U/L Blood Gas Puncture Site LEFT RADIAL Blood Gas Patient Temperature 98.4 Arterial Blood pH 7.43 7.37-7.43 Arterial Blood Partial Pressure CO2 31 L 35-45 MMHG Arterial Blood Partial Pressure O2 120 H 79-93 MMHG Arterial Blood HCO3 21 L 23-27 MMOL/L Arterial Blood Total CO2 21.4 21.0-31.0 MMOL/L Arterial Blood Oxygen Saturation 99 94-100 % Arterial Blood Base Excess -3.1 L -2.5-2.5 MMOL/L Derek Test YES-POS Blood Gas Ventilator Setting NO Blood Gas Inspired Oxygen 10L Lactic Acid Level 1.81 0.50-2.00 MMOL/L Micro Results Microbiology 08/13/19 Influenza Types A,B Antigen (ANGI) - Final, Complete My Orders Orders - HORTENSIA CARRILLO DO Cbc With Automated Diff (08/13/19 18:34) Magnesium (08/13/19 18:34) Chest 1 View, Ap/Pa Only (08/13/19 18:34) Ekg Tracing (08/13/19 18:34) Cardiac Profile 1 (08/13/19 18:34) Comprehensive Metabolic Panel (08/13/19 18:34) Myoglobin Serum (08/13/19 18:34) Protime With Inr (08/13/19 18:34) Partial Thromboplastin Time (08/13/19 18:34) O2 (08/13/19 18:34) Monitor-Rhythm Ecg Trace Only (08/13/19 18:34) Ed Iv/Invasive Line Start (08/13/19 18:34) Creatine Kinase (08/13/19 18:34) Creatine Kinase Mb (08/13/19 18:34) Lipase (08/13/19 18:34) Amylase (08/13/19 18:34) BNP (08/13/19 18:34) Nitroglycerin 0.4 Mg Btl 25's (Nitrostat (08/13/19 18:45) Aspirin Chewable Tablet (Baby Aspirin Ch (08/13/19 18:45) Albuterol/Ipra Inhalation Soln (Duoneb I (08/13/19 18:45) Rt Request For Service (08/13/19 18:42) Svn Small Volume Nebulizer (08/13/19 18:42) Arterial Blood Gas (08/13/19 18:42) Lactic Acid Analyzer (08/13/19 19:21) Blood Culture (08/13/19 19:21) Influenza A And B Antigens (08/13/19 19:21) Furosemide Injection (Lasix Injection) (08/13/19 20:00) Ekg Tracing (08/13/19 19:57) Potassium Chloride (Tablet) (K Dur Table (08/13/19 20:15) Medications Given in ED Current Medications Medications Dose Ordered Sig/Rommel Route Start Time Stop Time Status Last Admin Dose Admin Albuterol/ Ipratropium 3 ml ONCE ONCE INH 08/13/19 18:45 08/13/19 18:46 DC 08/13/19 19:03 3 ML Aspirin 324 mg ONCE ONCE PO 08/13/19 18:45 08/13/19 18:46 DC 08/13/19 19:07 324 MG Furosemide 80 mg ONCE ONCE IVP 08/13/19 20:00 08/13/19 20:30 DC 08/13/19 20:05 80 MG Potassium Chloride 20 meq ONCE ONCE PO 08/13/19 20:15 08/13/19 20:16 DC 08/13/19 20:25 20 MEQ Vital Signs/I&O 08/13/19 08/13/19 08/13/19 08/13/19 18:39 18:39 19:09 21:24 Temp 37.2 Pulse 87 77 Resp 18 21 B/P (MAP) 123/85 (98) 120/84 Pulse Ox 77 94 95 O2 Delivery Room Air Room Air O2 Flow Rate 10.00 08/13/19 23:15 Temp 37.0 Pulse 73 Resp 22 B/P (MAP) 143/92 Pulse Ox 96 O2 Flow Rate 10.00 08/14/19 00:00 Output Total 650 ml Balance -650 ml Progress Progress Note : Progress Note O2 SAT 77% ON ROOM AIR ON ARRIVAL. PLACED ON OXIMASK AT 10 L/MIN WITH SIGNIFICANT IMPROVEMENT IN SATS --UP TO 98% CHEST PAIN RESOLVED WITH O2 AND REST, AND SHORTNESS OF BREATH RESOLVED WELL. PT DOES DESATURATE SIGNIFICANTLY WITH MINIMAL EXERTION/MOVEMENTS, OR BRIEF REM OVAL OF OXYGEN.--QUICKLY DROPS TO LOW 80'S . GIVEN LASIX IV AND KCL PO--PT HAD OUTPUT OF AT LEAST 1750 ML URINE DURING ER STAY NO COMPLAINTS OF CHEST PAIN OR DYSPNEA FOR REMAINDER OF ER STAY Initial ECG Impression Date: Aug 13, 2019 Initial ECG Impression Time: 18:39 Initial ECG Rate: 99 Initial ECG Rhythm: Normal Sinus Initial ECG Impression: Nonspecific Changes (MILD ST DEPRESSION ANTERIOR/LATERA L LEADS AND NON-SPECIFIC IVCD. ), 1st Degree AV Block Initial ECG Comparisson: Changed (FROM 05/30/19) EKG : EKG Time: 20:14 Rate: 89 Rhythm: Normal Sinus (ST DEPRESSION ANTERIOR/LATERAL LEADS) ECG Comparisson: Unchanged (FROM 183 ) Diagnostic Imaging Comments CXR-- Central interstitial and airspace opacities with tiny pleural effusions most consistent with moderate pulmonary edema--PER RADIOLOGIST REPORT Reviewed: Reviewed by Me Departure Communication (Admissions) THIS FACILITY IS CURRENTLY ON COMPLETE DIVERSION AND UNABLE TO KEEP PT HERE 2001--PAGED/ SPOKE WITH DR. FLANAGAN. ADVISES LASIX AND POTASSIUM, AND WILL HAVE TO TRANSFER PT WE ARE ON COMPLETE DIVERSION 2008--CALLED [facility], MESSAGE LEFT ON MACHINE 2019--[facility]AN CALLED, PAGING [employer] DR. GRAVES 2020--SPOKE WITH DR. GRAVES, ACCEPTS PT FOR ADMIT/TRANSFER. NO ADDITIONAL RECOMMENDATIONS AT THIS TIME. [facility] UNAVAILABLE FOR TRANSFER AT THIS TIME 2099--RN HAS CONTACTED [facility], AND [facility] IS ON IT'S WAY HERE TO [facility] [employer] PT AND WILL TRANSPORT HIM TO [place] 2199--CALLED [facility], REGARDING ETA. THEY REPORT THAT [facility] IS ON IT'S WAY HERE. 2303--[facility] HERE FOR TRANSPORT. Impression Primary Impression: NSTEMI (non-ST elevated myocardial infarction) Additional Impressions: CHF (congestive heart failure) Hypoxia Disposition: 02 XFER SHT-TRM HOSP Condition: Improved Transfer Transfer Facility: [facility] Method of Transfer: EMS ([facility]) Departure-Patient Inst. Referrals: BRIGIDA PRECIADO MD (PCP/Family) Primary Care Physician HORTENSIA CARRILLO DO Aug 13, 2019 19:03 POS
[2019-08-13 19:04] LABS: ABG BASE EXCESS -3.1 MMOL/L (-2.5-2.5); ABG OXYGEN SATURATION 99 % (94-100); ABG PCO2 31 MMHG (35-45); ABG PH 7.43 (7.37-7.43); ABG PO2 120 MMHG (79-93); ABG TCO2 21.4 MMOL/L (21.0-31.0)
[2019-08-13 19:05] LABS: BASOPHILS % (AUTO) 0 % (0-10); EOSINOPHILS # (AUTO) 0.3 10^3/uL (0.0-0.3); EOSINOPHILS % (AUTO) 3 % (0-10); HEMATOCRIT 46 % (40-54); HEMOGLOBIN 15.2 G/DL (13.3-17.7); LYMPHOCYTES # (AUTO) 2.5 X 10^3 (1.0-4.0); LYMPHOCYTES % (AUTO) 21 % (12-44); MEAN CORPUSCULAR HEMOGLOBIN 32 PG (25-34); MEAN CORPUSCULAR HGB CONC 33 G/DL (32-36); MEAN CORPUSCULAR VOLUME 96 FL (80-99); MEAN PLATELET VOLUME 9.5 FL (7.4-10.4); MONOCYTES # (AUTO) 1.2 X 10^3 (0.0-1.0); MONOCYTES % (AUTO) 11 % (0-12); NEUTROPHILS # (AUTO) 7.5 X 10^3 (1.8-7.8); NEUTROPHILS % (AUTO) 65 % (42-75); PLATELET COUNT 248 10^3/uL (130-400); RED CELL DISTRIBUTION WIDTH 16.3 % (10.0-14.5); WHITE BLOOD COUNT 11.6 10^3/uL (4.3-11.0)
[2019-08-13 19:10] LABS: ALLENS TEST YES-POS; INSPIRED O2 10L
[2019-08-13 19:11] LABS: PATIENT TEMP 98.4; VENTILATOR NO
[2019-08-13 19:21] LABS: INR 1.4 (0.8-1.4); PROTHROMBIN TIME PATIENT 17.3 SEC (12.2-14.7)
--- NOTE | 2019-08-13 19:28 | Diagnostic Imaging Report ---
EXAMINATION: Chest 1 view HISTORY: Trouble breathing FINDINGS: Comparison is 05/01/2016. Patchy central interstitial and airspace opacities with tiny bilateral pleural effusions are most likely representing moderate pulmonary edema. Heart size is enlarged. No pneumothorax. IMPRESSION: 1. Central interstitial and airspace opacities with tiny pleural effusions most consistent with moderate pulmonary edema. Dictated by: Dictated on workstation # [id number]
[2019-08-13 19:33] LABS: ALBUMIN 3.9 GM/DL (3.2-4.5); BILIRUBIN,TOTAL 1.4 MG/DL (0.1-1.0); CALCIUM 9.3 MG/DL (8.5-10.1); CREATININE SERUM 1.28 MG/DL (0.60-1.30); MAGNESIUM 1.9 MG/DL (1.6-2.4); POTASSIUM 3.9 MMOL/L (3.6-5.0); TOTAL PROTEIN 7.6 GM/DL (6.4-8.2)
[2019-08-13 19:54] LABS: CREATINE KINASE MB 25.3 NG/ML (<6.6)
[2019-08-13] MEDS ORDERED: FUROSEMIDE 40 MG/4 ML INJ (LASIX) IVP ONE (20:00)
[2019-08-13] MEDS ORDERED: KCL 20 MEQ TAB (K-DUR) PO ONE (20:15)
[2019-08-13 23:15] VITALS: BP 143/92
== END 2019-08-13 23:15 | disposition short-term general hospital (02) ==
LOC: EDUNIT# 18:33 → ER 18:34
DX: I21.4 Non-ST elevation (NSTEMI) myocardial infarction (principal); I11.0 Hypertensive heart disease with heart failure; I50.9 Heart failure, unspecified; R09.02 Hypoxemia; I25.10 Atherosclerotic heart disease of native coronary artery without angina pectoris; G47.30 Sleep apnea, unspecified; I48.91 Unspecified atrial fibrillation; E78.00 Pure hypercholesterolemia, unspecified; K21.9 Gastro-esophageal reflux disease without esophagitis; D64.9 Anemia, unspecified; Z99.89 Dependence on other enabling machines and devices; Z96.611 Presence of right artificial shoulder joint; Z95.5 Presence of coronary angioplasty implant and graft; Z79.82 Long term (current) use of aspirin; Z79.01 Long term (current) use of anticoagulants; Z90.89 Acquired absence of other organs; Z95.9 Presence of cardiac and vascular implant and graft, unspecified; Z82.49 Family history of ischemic heart disease and other diseases of the circulatory system
CPT/HCPCS: 36415; 71045; 80053; 82150; 82550; 82553; 82805; 83605; 83690; 83735; 83874; 83880; 84484; 85025; 85610; 85730; 87040; 87804; 93005; 93041; 94640; 94664

== ENCOUNTER 2019-08-17 23:23 | Observation (INO) | payer MEDICARE, OTHER ==
[~2019-08-17] VITALS: Ht 175.3 cm; Wt 87.0 kg
[2019-08-17 23:45] LABS: BASOPHILS % (AUTO) 0 % (0-10); EOSINOPHILS # (AUTO) 0.1 10^3/uL (0.0-0.3); EOSINOPHILS % (AUTO) 1 % (0-10); HEMATOCRIT 44 % (40-54); HEMOGLOBIN 14.5 G/DL (13.3-17.7); LYMPHOCYTES # (AUTO) 0.8 X 10^3 (1.0-4.0); LYMPHOCYTES % (AUTO) 7 % (12-44); MEAN CORPUSCULAR HEMOGLOBIN 32 PG (25-34); MEAN CORPUSCULAR HGB CONC 33 G/DL (32-36); MEAN CORPUSCULAR VOLUME 97 FL (80-99); MEAN PLATELET VOLUME 9.4 FL (7.4-10.4); MONOCYTES # (AUTO) 0.8 X 10^3 (0.0-1.0); MONOCYTES % (AUTO) 7 % (0-12); NEUTROPHILS # (AUTO) 10.7 X 10^3 (1.8-7.8); NEUTROPHILS % (AUTO) 86 % (42-75); PLATELET COUNT 277 10^3/uL (130-400); RED CELL DISTRIBUTION WIDTH 15.2 % (10.0-14.5); WHITE BLOOD COUNT 12.5 10^3/uL (4.3-11.0)
[2019-08-17 23:54] LABS: PROTHROMBIN TIME PATIENT 13.6 SEC (12.2-14.7)
--- NOTE | 2019-08-17 23:56 | ED Syncope ---
General Chief Complaint: Dizziness/Syncope Stated Complaint: SYNCOPE Nursing Triage Note: arrives via ems to room 5 report states patient had a syncopal episode at home and patient states he sat down in the chair. that he did not fall. was released from [facility] today. Daughter wanted patient to be checked out. Source of Information: Patient, EMS, Old Records Exam Limitations: Intoxication History of Present Illness Date Seen by Provider: Aug 17, 2019 Time Seen by Provider: 23:23 Initial Comments PT ARRIVES VIA EMS FROM HOME PT HAD UNWITNESSED SYNCOPAL EPISODE AT HOME--PT'S DAUGHTER WAS AT THE HOUSE, BUT WAS NOT WITH THE PT WHEN THIS HAPPENED. . PT STATES HE WAS WALKING AROUND IN THE HOUSE, AND GOT DIZZY AND SAT DOWN, AND BRIEFLY PASSED OUT--DAUGHTER ESTIMATED TO EMS THAT IT WAS APPROXIMATELY 30 SECONDS. DENIES ANY INJURY NO CHEST PAIN NO PALPITATIONS NO HEADACHE NO VISION CHANGES NO PARESTHESIAS OR MOTOR DEFICITS C/O MILD SHORTNESS OF BREATH NO SWELLING IN LEGS/FEET OR PAIN IN CALVES NO FEVER NO COUGH PT WAS SEEN HERE 08/13/19 FOR CHEST PAIN AND WAS FOUND TO HAVE NSTEMI AND CHF PT WAS TRANSFERRED TO [facility] DUE TO THIS FACILITY BEING ON DIVERSION AT THAT TIME PT STATES HE HAD A CARDIAC CATH BUT DID NOT HAVE ANY INTERVENTION AT [facility] PT HAS KNOWN CAD, AND HAS HAD STENT X 1 APPROXIMATELY 3 1/2 YEARS AGO. LAST CARDIAC CATH THAT WAS DONE HERE WAS ON 05/30/19 AND SHOWED PATENT STENT IN LAD, WITH CHRONIC COMPLETE OCCLUSION OF RCA WITH COLLATERAL CIRCULATION. PT ALSO HAD CT CHEST ANGIOGRAM AND ECHOCARDIOGRAMS X 2 WHILE AT [facility]--THOSE RESULTS ARE NOT KNOWN PT ALSO HAS HISTORY OF PAROXYSMAL ATRIAL FIB/RVR AND IS ON ELIQUIS, AND HAD LOOP RECORDER PLACED 02/27/19 PT HAS HAD ONGOING DYSPNEA AND CHEST PAIN, ESPECIALLY ON EXERTION FOR THE LAST 6 MONTHS PT WAS DX WITH PULMONARY FIBROSIS BY THE HEEL REDUCER AT [facility] PT HAD PERSISTENT HYPOXIA WHILE HE WAS AT [facility], AND WAS DISMISSED TO HOME TODAY ON O2 AT 3L/NC PT STATES HIS ONLY NEW MEDICATION WAS PREDNISONE--HAD A DOSE TODAY BEFORE HE WAS DISMISSED FROM THE HOSPITAL AND NEXT DOSE WILL BE TOMORROW MORNING. PT STATES WHEN HE WAS WALKING AROUND THE HOUSE TONIGHT, AND WHEN HE HAD HIS SYNCOPAL EPISODE TONIGHT, HE WAS NOT WEARING THE HOME O2, BUT THAT HE PUT IT ON AFTERWARDS EMS REPORT THAT PT'S O2 SAT WAS 87% ON 3L/NC WHEN THEY ARRIVED AT THE SCENE. EMS INCREASED HIS O2 TO 4L/NC AND O2 SATS UP TO 92% PT HAS HAD "2 DRINKS" TONIGHT OF [place]OTCH. PCP: DR. PRECIADO CARDIOLOGY: DR. FLANAGAN, ALSO DR. MARINA Allergies and Home Medications Allergies Coded Allergies: No Known Drug Allergies (Unverified , 09/18/11) Home Medications Apixaban 5 Mg Tablet, 5 MG PO BID, (Reported) Aspirin 81 Mg Tab.chew, 81 MG PO DAILY Prescribed by: DAVID FLANAGAN on 10/26/17 1031 Atorvastatin Calcium 10 Mg Tablet, 10 MG PO HS, (Reported) Celecoxib 200 Mg Capsule, 200 MG PO WEEK PRN for PAIN, (Reported) Metoprolol Succinate 25 Mg Tab.er.24h, 25 MG PO DAILY, (Reported) Omeprazole 20 Mg Tablet.dr, 40 MG PO DAILY, (Reported) Valsartan 320 Mg Tablet, 320 MG PO DAILY, (Reported) Patient Home Medication List Home Medication List Reviewed: Yes Review of Systems Constitutional: see HPI; No diaphoresis; dizziness; No fever EENTM: no symptoms reported Respiratory: see HPI, dyspnea on exertion, short of breath Cardiovascular: No chest pain, No edema, No palpitations; syncope Gastrointestinal: no symptoms reported Genitourinary: no symptoms reported Musculoskeletal: no symptoms reported Skin: no symptoms reported Psychiatric/Neurological: See HPI (SYNCOPE); Denies Headache, Denies Numbness, Denies Paresthesia, Denies Tingling, Denies Weakness Past Trpqmbu-Cnisba-Jmfhkn Hx Past Med/Social Hx: Reviewed and Corrections made Patient Social History Alcohol Use: Regular Use Alcohol Beverage of Choice: [email or web address] Recreational Drug Use: No Smoking Status: Never a Smoker Recent Foreign Travel: No Contact w/Someone Who Travel: No Recent Infectious Disease Expo: No Recent Hopitalizations: No Immunizations Up To Date Date of Influenza Vaccine: Jul 26, 2017 Seasonal Allergies Seasonal Allergies: No Past Medical History Surgeries: Yes (CARDIAC CATHS--STENT X 1 TO LAD 02/2016; CARDIAC CATH HERE 05/30/19--NO INTERVENTION; CARDIAC CATH AT [facility] 08/15/19--NO INTERVENTION; LOOP RECORDER PLACED 02/27/19; LEFT KNEE SURGERY; RIGHT SHOULDER REPLACEMENT; C OLONOSCOPIES) Cardiac, Coronary Stent, Joint Replacement, Orthopedic, Tonsillectomy Respiratory: Yes (SLEEP APNEA, USES C-PAP; DX WITH PULMONARY FIBROSIS AND PLACED ON HOME O2 AT 3L/NC 08/17/19) Sleep Apnea, Pulmonary Fibrosis Currently Using CPAP: Yes Currently Using BIPAP: No Cardiac: Yes (NSTEMI 08/13/19--CARDIAC CATH AT [facility] 08/15/19--NO INTERVENTION; STENT X 1 TO LAD 02/2016; LAST CATH HERE 05/30/19--PATENT STENT WITH CHRONIC/STABLE COMPLETE OCCLUSION OF RCA WITH COLLATERAL CIRCULATION--NO INTERVENTION; CHF; CAROTID DISEASE-NO INTERVENTION; PAROXYSMAL ATRIAL FIB/RVR-ON ELIQUIS; LOOP RECORDER PLACED 02/2019) Atrial Fibrillation, Coronary Artery Disease, High Cholesterol, Hypertension, Irregular Heartbeat Neurological: No Reproductive Disorders: No Genitourinary: No Gastrointestinal: Yes Gastroesophageal Reflux, Polyps Musculoskeletal: Yes (LEFT KNEE SURGERY; RIGHT SHOULDER REPLACEMENT) Arthritis Endocrine: No HEENT: Yes Cataract Loss of Vision: Denies Hearing Impairment: Denies Cancer: No Psychosocial: No Integumentary: No Blood Disorders: Yes (ANEMIA) Family Medical History Abdominal aortic aneurysm G8 SISTER Arthritis 19 MOTHER Hypertension 19 MOTHER Physical Exam Vital Signs Vital Signs - First Documented 08/17/19 23:23 Temp 36.1 Pulse 100 Resp 18 B/P (MAP) 123/74 (90) Pulse Ox 93 O2 Delivery Nasal Cannula O2 Flow Rate 4.00 FiO2 94 Capillary Refill : Less Than 3 Seconds Height, Weight, BMI Height: 5'8.00" Weight: 205lbs. 0.0oz. 92.096942tt; 28.00 BMI Method:Stated General Appearance: No Apparent Distress, WD/WN, Other (STRONG ODOR OF ETOH. SPEECH SLIGHTLY SLOW AND SLIGHTLY SLURRED. ) Neck: Full Range of Motion, Normal Inspection, Non Tender, Supple; No Carotid Bruit, No JVD Cardiovascular: Regular Rate, Rhythm, No Edema, No JVD, No Murmur, Normal Peripheral Pulses Respiratory: No Accessory Muscle Use, No Respiratory Distress, Rales (DECREASED AERATION IN BASES, WITH FAINT BIBASILAR RALES), Other (SLIGHTLY DYSPNEIC ON ARRIVAL) Gastrointestinal: Normal Bowel Sounds, No Organomegaly, No Pulsatile Mass, Non Tender, Soft Extremities: Normal Capillary Refill, Normal Inspection, Normal Range of Motion, Non Tender, No Calf Tenderness, No Pedal Edema Neurologic/Psychiatric: Alert, Oriented x3, No Motor/Sensory Deficits, 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4-10.4 FL Neutrophils (%) (Auto) 86 H 42-75 % Lymphocytes (%) (Auto) 7 L 12-44 % Monocytes (%) (Auto) 7 0-12 % Eosinophils (%) (Auto) 1 0-10 % Basophils (%) (Auto) 0 0-10 % Neutrophils # (Auto) 10.7 H 1.8-7.8 X 10^3 Lymphocytes # (Auto) 0.8 L 1.0-4.0 X 10^3 Monocytes # (Auto) 0.8 0.0-1.0 X 10^3 Eosinophils # (Auto) 0.1 0.0-0.3 10^3/uL Basophils # (Auto) 0.0 0.0-0.1 10^3/uL Prothrombin Time 13.6 12.2-14.7 SEC INR Comment 1.0 0.8-1.4 Activated Partial Thromboplast Time 32 24-35 SEC Sodium Level 143 135-145 MMOL/L Potassium Level 3.2 L 3.6-5.0 MMOL/L Chloride Level 106 98-107 MMOL/L Carbon Dioxide Level 20 L 21-32 MMOL/L Anion Gap 17 H 5-14 MMOL/L Blood Urea Nitrogen 14 7-18 MG/DL Creatinine 0.97 0.60-1.30 MG/DL Estimat Glomerular Filtration Rate > 60 BUN/Creatinine Ratio 14 Glucose Level 179 H 70-105 MG/DL Calcium Level 9.9 8.5-10.1 MG/DL Corrected Calcium 10.0 8.5-10.1 MG/DL Magnesium Level 2.1 1.6-2.4 MG/DL Total Bilirubin 0.7 0.1-1.0 MG/DL Aspartate Amino Transf (AST/SGOT) 37 H 5-34 U/L Alanine Aminotransferase (ALT/SGPT) 41 0-55 U/L Alkaline Phosphatase 84 40-136 U/L Total Creatine Kinase 111 30-200 U/L Creatine Kinase MB 3.7 <6.6 NG/ML Myoglobin 78.7 10.0-92.0 NG/ML Troponin I 0.591 *H <0.028 NG/ML B-Type Natriuretic Peptide 124.8 H <100.0 PG/ML Total Protein 7.6 6.4-8.2 GM/DL Albumin 3.9 3.2-4.5 GM/DL Serum Alcohol 157 H <10 MG/DL My Orders Orders - HORTENSIA CARRILLO DO Ed Iv/Invasive Line Start (08/17/19 23:26) Ekg Tracing (08/17/19 23:26) O2 (08/17/19 23:26) Monitor-Rhythm Ecg Trace Only (08/17/19 23:26) Chest 1 View, Ap/Pa Only (08/17/19 23:26) Alcohol (08/17/19 23:26) BNP (08/17/19 23:26) Cbc With Automated Diff (08/17/19 23:26) Comprehensive Metabolic Panel (08/17/19 23:26) Creatine Kinase (08/17/19 23:26) Creatine Kinase Mb (08/17/19 23:26) Magnesium (08/17/19 23:26) Protime With Inr (08/17/19 23:26) Partial Thromboplastin Time (08/17/19 23:26) Myoglobin Serum (08/17/19 23:26) Troponin I (08/17/19 23:26) Vital Signs/I&O 08/17/19 08/17/19 23:23 23:23 Temp 36.1 Pulse 100 Resp 18 B/P (MAP) 123/74 (90) Pulse Ox 93 93 O2 Delivery Nasal Cannula Nasal Cannula O2 Flow Rate 4.00 4.00 FiO2 94 Blood Pressure Mean: 90 POS Progress Progress Note : Progress Note NO DETERIORATION IN PT'S CONDITION DURING ER STAY O2 SATS REMAINED 92% ON 4L/NC THROUGHOUT ER STAY PT HAD NO COMPLAINTS DURING ER STAY Initial ECG Impression Date: Aug 18, 2019 Initial ECG Impression Time: 23:27 Initial ECG Rate: 104 Initial ECG Rhythm: Normal Sinus Initial ECG Impression: Nonspecific Changes, 1st Degree AV Block Initial ECG Comparisson: Changed (SLIGHT CHANGES FROM 08/13/19--ST DEPRESSION IN ANTERIOR/LATERAL LEADS IS LESS, T WAVE INVERSION INFERIORLY IS MORE PRONOUNC ED) Diagnostic Imaging Comments CXR--CHRONIC APPEARING CHANGES, SIMILAR TO 08/13/19--PENDING RADIOLOGIST REVIEW Reviewed: Reviewed by Me Departure Communication (Admissions) 0025--SPOKE WITH DR. FLANAGAN, ADVISES TO ADMIT TO HOSPITALIST AND HE WILL SEE PT IN CONSULT 0030--SPOKE WITH DR. RIZVI, ACCEPTS PT FOR ADMIT Impression Primary Impression: Syncope Additional Impressions: Recent non-ST elevation myocardial infarction (NSTEMI) HYPOXIA WITH NEW REQUIREMENT FOR SUPPLEMENTAL O2 Pulmonary fibrosis Alcohol intoxication Hypokalemia Hx of congestive heart failure HX OF PAROXYSMAL ATRIAL FIBRILLATION Disposition: ADMITTED INPATIENT Condition: Stable Admissions Decision to Admit Reason: Admit from ER (General) Decision to Admit/Date: Aug 18, 2019 Time/Decision to Admit Time: 00:30 Departure-Patient Inst. Referrals: BRIGIDA PRECIADO MD (PCP/Family) Primary Care Physician HORTENSIA CARRILLO DO Aug 17, 2019 23:56 POS
[2019-08-18] VITALS (12 sets, daily range): BP systolic 112–141; BP diastolic 68–93
[2019-08-18 00:04] LABS: ALANINE AMINOTRANSFERASE 41 U/L (0-55); ALBUMIN 3.9 GM/DL (3.2-4.5); ALKALINE PHOSPHATASE 84 U/L (40-136); BILIRUBIN,TOTAL 0.7 MG/DL (0.1-1.0); BUN/CREATININE RATIO 14; CALCIUM 9.9 MG/DL (8.5-10.1); CARBON DIOXIDE 20 MMOL/L (21-32); CHLORIDE 106 MMOL/L (98-107); CREATINE KINASE 111 U/L (30-200); CREATININE SERUM 0.97 MG/DL (0.60-1.30); GFR ESTIMATED > 60; GLUCOSE 179 MG/DL (70-105); MAGNESIUM 2.1 MG/DL (1.6-2.4); POTASSIUM 3.2 MMOL/L (3.6-5.0); SODIUM 143 MMOL/L (135-145); TOTAL PROTEIN 7.6 GM/DL (6.4-8.2)
[2019-08-18 00:11] LABS: CREATINE KINASE MB 3.7 NG/ML (<6.6)
[2019-08-18] MEDS ORDERED: KCL 10 MEQ TAB (MICRO K) PO ONE ×2 (00:45→00:46)
[2019-08-18] MEDS ORDERED: RT-ALBUTEROL/IPRATROPIUM 3 ML (DUONEB) VIAL INH PRN ×2 (02:30→04:45)
[2019-08-18 03:21] LABS: BASOPHILS % (AUTO) 0 % (0-10); EOSINOPHILS % (AUTO) 0 % (0-10); HEMATOCRIT 41 % (40-54); HEMOGLOBIN 13.5 G/DL (13.3-17.7); LYMPHOCYTES # (AUTO) 0.7 X 10^3 (1.0-4.0); LYMPHOCYTES % (AUTO) 6 % (12-44); MEAN CORPUSCULAR HEMOGLOBIN 32 PG (25-34); MEAN CORPUSCULAR HGB CONC 33 G/DL (32-36); MEAN CORPUSCULAR VOLUME 97 FL (80-99); MEAN PLATELET VOLUME 9.5 FL (7.4-10.4); MONOCYTES # (AUTO) 0.6 X 10^3 (0.0-1.0); MONOCYTES % (AUTO) 5 % (0-12); NEUTROPHILS % (AUTO) 89 % (42-75); PLATELET COUNT 262 10^3/uL (130-400); RED CELL DISTRIBUTION WIDTH 15.2 % (10.0-14.5); WHITE BLOOD COUNT 11.3 10^3/uL (4.3-11.0)
[2019-08-18 03:41] LABS: ALANINE AMINOTRANSFERASE 36 U/L (0-55); ALBUMIN 3.5 GM/DL (3.2-4.5); ALKALINE PHOSPHATASE 70 U/L (40-136); BILIRUBIN,TOTAL 0.6 MG/DL (0.1-1.0); BUN/CREATININE RATIO 19; CALCIUM 9.4 MG/DL (8.5-10.1); CARBON DIOXIDE 23 MMOL/L (21-32); CHLORIDE 107 MMOL/L (98-107); CREATININE SERUM 0.81 MG/DL (0.60-1.30); GFR ESTIMATED > 60; GLUCOSE 109 MG/DL (70-105); POTASSIUM 4.3 MMOL/L (3.6-5.0); SODIUM 142 MMOL/L (135-145); TOTAL PROTEIN 6.8 GM/DL (6.4-8.2)
--- NOTE | 2019-08-18 04:26 | Pulmonary Consultation ---
History of Present Illness History of Present Illness Date of Consultation 08/18/19 04:21 Time Seen by Provider: 04:21 Date of Admission History of Present Illness 78yo with hx of CAD, Afib, and pulmonary fibrosis just discharged from [facility] yesterday on prednisone and home 02 presented to our ED secondary to unwitnessed self reported syncope. Pt was not using home oxygen and drinking alcohol. No CP, palpitations. No f/NS/C. He has had prior episodes of syncope. Alcohol level is 157. Allergies and Home Medications Allergies Coded Allergies: No Known Drug Allergies (Unverified , 09/18/11) Home Medications Apixaban 5 Mg Tablet, 5 MG PO BID, (Reported) Aspirin 81 Mg Tab.chew, 81 MG PO DAILY Prescribed by: DAVID FLANAGAN on 10/26/17 1031 Atorvastatin Calcium 10 Mg Tablet, 10 MG PO HS, (Reported) Celecoxib 200 Mg Capsule, 200 MG PO WEEK PRN for PAIN, (Reported) Metoprolol Succinate 25 Mg Tab.er.24h, 25 MG PO DAILY, (Reported) Omeprazole 20 Mg Tablet.dr, 40 MG PO DAILY, (Reported) Valsartan 320 Mg Tablet, 320 MG PO DAILY, (Reported) Past Qbwgjll-Odsrtx-Pwtfoo Hx Past Med/Social Hx: Reviewed and Corrections made Patient Social History Alcohol Use: Regular Use Number of Drinks Today: EE Alcohol Beverage of Choice: [employer] Recreational Drug Use: No Smoking Status: Never a Smoker Recent Foreign Travel: No Contact w/Someone Who Travel: No Recent Infectious Disease Expo: No Recent Hopitalizations: No Physical Abuse: No Sexual Abuse: No Mistreated: No Fear: No Immunizations Up To Date Date of Pneumonia Vaccine: Aug 16, 2019 Date of Influenza Vaccine: Aug 16, 2019 Seasonal Allergies Seasonal Allergies: No Past Medical History Surgeries: Yes (CARDIAC CATHS--STENT X 1 TO LAD 02/2016; CARDIAC CATH HERE 05/30/19--NO INTERVENTION; CARDIAC CATH AT [facility] 08/15/19--NO INTERVENTION; LOOP RECORDER PLACED 02/27/19; LEFT KNEE SURGERY; RIGHT SHOULDER REPLACEMENT; COLONOSCOPIES) Cardiac, Coronary Stent, Joint Replacement, Orthopedic, Tonsillectomy Respiratory: Yes (SLEEP APNEA, USES C-PAP; DX WITH PULMONARY FIBROSIS AND PLACED ON HOME O2 AT 3L/NC 08/17/19) Sleep Apnea, Pulmonary Fibrosis Currently Using CPAP: Yes Currently Using BIPAP: No Cardiac: Yes (NSTEMI 08/13/19--CARDIAC CATH AT [facility] 08/15/19--NO INTERVENTION; STENT X 1 TO LAD 02/2016; LAST CATH HERE 05/30/19--PATENT STENT WITH CHRONIC/STABLE COMPLETE OCCLUSION OF RCA WITH COLLATERAL CIRCULATION--NO INTERVENTION; CHF; CAROTID DISEASE-NO INTERVENTION; PAROXYSMAL ATRIAL FIB/RVR-ON ELIQUIS; LOOP RECORDER PLACED 02/2019) Atrial Fibrillation, Coronary Artery Disease, High Cholesterol, Hypertension, Irregular Heartbeat Neurological: No Reproductive Disorders: No Genitourinary: No Gastrointestinal: Yes Gastroesophageal Reflux, Polyps Musculoskeletal: Yes (LEFT KNEE SURGERY; RIGHT SHOULDER REPLACEMENT) Arthritis Endocrine: No HEENT: Yes Cataract Loss of Vision: Denies Hearing Impairment: Denies Cancer: No Psychosocial: No Integumentary: No Blood Disorders: Yes (ANEMIA) Family Medical History Abdominal aortic aneurysm G8 SISTER Arthritis 19 MOTHER Hypertension 19 MOTHER Sepsis Event Evaluation Height, Weight, BMI Height: 5'8.00" Weight: 205lbs. 0.0oz. 92.721202ws; 28.31 BMI Method:Stated Exam Exam Vital Signs Date Time Temp Pulse Resp B/P (MAP) Pulse Ox O2 Delivery O2 Flow Rate FiO2 08/18/19 04:00 94 NIV Bilevel 4.00 08/18/19 04:00 77 15 141/93 (109) 95 NIV CPAP 4.00 08/18/19 03:58 37.0 08/18/19 03:00 84 18 137/86 (103) 96 NIV CPAP 4.00 08/18/19 02:30 76 24 138/89 (105) 94 NIV CPAP 4.00 08/18/19 02:18 36.7 78 96 36 08/18/19 02:00 NIV CPAP 4.00 08/18/19 02:00 79 20 117/76 (90) 96 NIV CPAP 4.00 08/18/19 01:45 68 24 121/75 (90) 94 Nasal Cannula 5.00 08/18/19 01:15 85 08/18/19 01:05 93 Nasal Cannula 5.00 08/18/19 01:05 36.7 84 20 128/77 (94) 93 Nasal Cannula 5.00 08/18/19 01:00 90 26 109/74 (90) 94 Nasal Cannula 5.00 08/17/19 23:23 36.1 100 18 123/74 (90) 93 Nasal Cannula 4.00 08/17/19 23:23 93 Nasal Cannula 4.00 94 Height & Weight Height: 5'8.00" Weight: 205lbs. 0.0oz. 92.486369vh; 28.31 BMI Method:Stated General Appearance: No Apparent Distress, WD/WN, Other (STRONG ODOR OF ETOH. SPEECH SLIGHTLY SLOW AND SLIGHTLY SLURRED. 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
[2019-08-18] MEDS ORDERED: FUROSEMIDE 40 MG/4 ML INJ (LASIX) IVP ONE (04:30)
[2019-08-18 04:53] LABS: MAGNESIUM 2.1 MG/DL (1.6-2.4); PHOSPHORUS 3.6 MG/DL (2.3-4.7)
[2019-08-18 05:08] LABS: LYMPHOCYTES % (MANUAL) 4 %; MONOCYTES % (MANUAL) 4 %; NEUTROPHILS % (MANUAL) 92 %
[2019-08-18] MEDS ORDERED: RT-ALBUTEROL/IPRATROPIUM 3 ML (DUONEB) VIAL INH SCH ×3 (06:00→15:00)
--- NOTE | 2019-08-18 06:24 | NUR ---
JEREMY HEMPHILL admitted to room CU12-1, with an admitting diagnosis of SYNCOPE, on 08/18/19.JEREMY HEMPHILL introduced to surroundings, call light, bed controls, phone, TV, temperature control, lights, meal times, smoking policy, visitor policy, side rail policy, bathrooms and showers. Patient Rights given to patient in the handbook.JEREMY HEMPHILL verbalizes understanding that [facility] is not responsible for the loss or damage to any personal effects or valuables that are kept in the patients posession during their hospitalization. The following Patient Care Plans were discussed with the PATIENT: Discharge Planning,RISK OF INJURY,ANXIETY and KNOWLEDGE DEFICIT. JEREMY HEMPHILL verbalizes understanding of Interdisciplinary Patient Education. Patient and/or family were informed about the Rapid Response Team and its purpose.
--- NOTE | 2019-08-18 07:13 | Diagnostic Imaging Report ---
INDICATION: Syncopal episodes COMPARISON: 08/13/2019 and 05/06/2016 TECHNIQUE: Single frontal radiograph of the chest dated 08/17/2019 FINDINGS: Loop recorder is noted overlying the left chest. Right shoulder arthroplasty. The cardiac silhouette is mildly enlarged, stable from the prior exam. Central pulmonary vascular congestion is again identified. Diffuse prominence of the pulmonary interstitium, slightly increased since the prior examination. Low lung volumes. No large volume pleural effusion. No pneumothorax. No acute osseous abnormality. IMPRESSION: Low lung volumes with slightly increased diffuse bilateral interstitial opacities. This is felt to relate to some interstitial edema superimposed upon chronic interstitial lung changes. Dictated by: Dictated on workstation # [id number]
--- NOTE | 2019-08-18 08:51 | History & Physical-Hospitalist ---
History of Present Illness HPI/Chief Complaint Pt is a 78-year-old male with a past medical history of coronary artery disease, atrial fibrillation, hypertension, newly diagnosed pulmonary fibrosis who presented to the emergency department after a syncopal episode. Patient reports that he was just discharged from the hospital yesterday with a new diagnosis of pulmonary fibrosis and prescription for 3 L continuous oxygen. He was seen here in the ER for chest pain and transferred to [facility] for cardiology evaluation as we were on diversion. He reports he had a clean cath but his CT chest revealed pulmonary fibrosis. He reports he was at home and had just taken off his oxygen to move around and move some things around when he became lightheaded and passed out. This morning he reports that he is doing well and would like to discharge home. 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 Source: patient Date Seen 08/18/19 Time Seen by a Provider: 08:15 Attending Physician Federico Caldwell MD PCP Jj Malhotra MD Referring Physician Date of Admission Aug 18, 2019 at 00:30 Home Medications & Allergies Home Medications Reviewed patient Home Medication Reconciliation performed by pharmacy medication reconciliations slot technician and/or nursing. Patients Allergies have been reviewed. Allergies Allergies Coded Allergies No Known Drug Allergies ([id number]/9/11) Past Imarqxx-Kxksed-Wflsxa Hx Past Med/Social Hx: Reviewed Nursing Past Med/Soc Hx Patient Social History Alcohol Use: Regular Use Alcohol Beverage of Choice: Scotch Recreational Drug Use: No Smoking Status: Never a Smoker Recent Foreign Travel: No Contact w/other who traveled: No Recent Hopitalizations: No Recent Infectious Disease Expo: No Immunizations Up To Date Date of Pneumonia Vaccine: Aug 16, 2019 Date of Influenza Vaccine: Aug 16, 2019 Seasonal Allergies Seasonal Allergies: No Past Medical History Surgeries: Cardiac, Coronary Stent, Joint Replacement, Orthopedic, Tonsillectomy Respiratory: Pulmonary Fibrosis Currently Using CPAP: Yes Currently Using BIPAP: No Cardiac: Atrial Fibrillation, Coronary Artery Disease, High Cholesterol, Hypertension, Irregular Heartbeat Reproductive: No Gastrointestinal: Gastroesophageal Reflux, Polyps Musculoskeletal: Arthritis HEENT: Cataract Loss of Vision: Denies Hearing Impairment: Denies History of Blood Disorders: Yes (ANEMIA) Family History Reviewed Nursing Family Hx Abdominal aortic aneurysm G8 SISTER Arthritis 19 MOTHER Hypertension 19 MOTHER Review of Systems Constitutional: no symptoms reported EENTM: no symptoms reported Respiratory: see HPI Cardiovascular: see HPI, syncope Genitourinary: no symptoms reported Musculoskeletal: no symptoms reported Skin: no symptoms reported Psychiatric/Neurological: No Symptoms Reported Physical Exam Physical Exam Vital Signs Vital Signs - First Documented 08/17/19 23:23 Temp 36.1 Pulse 100 Resp 18 B/P (MAP) 123/74 (90) Pulse Ox 93 O2 Delivery Nasal Cannula O2 Flow Rate 4.00 FiO2 94 Capillary Refill : Less Than 3 Seconds Height, Weight, BMI Height: 5'8.00" Weight: 205lbs. 0.0oz. 92.137703dh; 28.31 BMI Method:Stated General Appearance: No Apparent Distress, WD/WN HEENT: Moist Mucous Membranes; No Scleral Icterus (L), No Scleral Icterus (R) Neck: No Thyromegaly Respiratory: Lungs Clear, No Accessory Muscle Use, No Respiratory Distress Cardiovascular: Regular Rate, Rhythm, No Murmur Gastrointestinal: Normal Bowel Sounds, Non Tender, Soft Extremity: No Calf Tenderness, No Pedal Edema Neurologic/Psychiatric: Alert, Oriented x3, Normal Mood/Affect Results Results/Procedures Labs Patient resulted labs reviewed. Assessment/Plan Assessment and Plan Syncope Likely due to hypoxia Clinical Quality Measures DVT/VTE Risk/Contraindication: Risk Factor Score Per Nursin RFS Level Per Nursing on Admit: 4+=Very High AMPARO CALVO MD Aug 18, 2019 08:50 POS
[2019-08-18] MEDS ORDERED: DIET75TA31 PO (09:24)
[2019-08-18] MEDS ORDERED: ASPI-983 PO (09:24)
[2019-08-18] MEDS ORDERED: ACET-2267 PO (09:24)
[2019-08-18] MEDS ORDERED: SILD100T67 PO (09:24)
[2019-08-18] MEDS ORDERED: RANO500T5 PO (09:24)
[2019-08-18] MEDS ORDERED: AMIT10TA6 PO (09:24)
[2019-08-18] MEDS ORDERED: METO-352 PO (09:24)
[2019-08-18] MEDS ORDERED: ATOR10TA66 PO (09:24)
[2019-08-18] MEDS ORDERED: CELE200C PO (09:24)
[2019-08-18] MEDS ORDERED: OMEP20CA13 PO (09:24)
[2019-08-18] MEDS ORDERED: PRD20T PO (09:24)
[2019-08-18] MEDS ORDERED: FLUT9.9S NS (09:33)
--- NOTE | 2019-08-18 09:41 | NUR ---
SPOKE WITH THE PATIENT ABOUT HIS MEDICATIONS. WE WENT OVER THE EXT MED HX AND HE VERIFIED HOW HE TAKES THEM. HE ALSO HAD A BOTTLE THAT HAD ALL OF HIS MEDICATIONS MIXED IN TOGETHER. AFTER WE WENT OVER THE EXT MED HX I IDENTIFIED EACH TABLET ON LEXICOMP TO CHECK FOR ANY ADDITIONAL MEDICATIONS. HE IS PAST DUE FOR REFILL ON TWO OF HIS MEDICATIONS: 06-19-19 #30 DIETHYLPROPION (STATES HE DOES TAKE THIS EVERYDAY FOR APPETITE) 04-06-19 #90 LIPITOR 10MG (VERIFIED DATE WITH [facility] ORDER) IN ADDITION TO THE TABLETS WE DISCUSSED FROM THE EXT MED HX IN HIS BOTTLE OF PILLS THERE ARE TWO HCTZ 25MG TABLETS - HE STATES THESE HAVE BEEN IN THERE A LONG TIME AND HE IS NO LONGER TAKING THEM. HE NO LONGER TAKING METFORMIN ER 500MG THAT WAS LAST FILLED #90 05-25-19. HE STATES HE NO LONGER TAKES THE TRAZODONE 100MG FILLED #90 05-17-19 - IT WAS CHANGED TO AMITRIPTYLINE. HE TAKES THE FOLLOWING OTC: TYLENOL PRN ASPIRIN 81MG HS FLONASE PRN HE STATES THE ONLY CHANGE THAT WAS MADE WHEN HE WAS RECENTLY DISCHARGED FROM [facility] WAS THE ADDITION OF THE DAILY PREDNISONE DOSE. HIS TOPROL DOSE HAS BEEN BEING ADJUSTED BUT NOT AT [facility], IT WAS PREVIOUS TO THAT VISIT.
--- NOTE | 2019-08-18 09:59 | Discharge Inst-Simple/Standard ---
Discharge Inst-Standard Reconcile Patient Problems Problems Reviewed?: Yes Discharge Medications New, Converted or Re-Newed RX: Transmitted to Pharmacy Patient Instructions/Follow Up Plan of Care/Instructions/FU: Please continue to take your medications as written. Please wear your oxygen as prescribed. Please follow up with Dr Malhotra in the next week to follow up this hosptial stay and with Dr Brooke as scheduled. Please follow up with your building energy retrofit technician or Dr Carter to follow up this hospital stay. Activity as Tolerated: Yes Discharge Diet: Cardiac Diet Return to The Hospital For: Chest pain, shortness of breath, passing out, palpitations, if you feel you are getting worse. AMPARO CALVO MD Aug 18, 2019 09:56 POS
--- NOTE | 2019-08-18 17:23 | Consultation-Cardiology ---
HPI-Cardiology Cardiology Consultation: Date of Consultation 08/18/19 Time Seen by a Provider: 09:15 Date of Admission Attending Physician Federico Caldwell MD Admitting Physician Jj Malhotra MD Consulting Physician DAVID FLANAGAN MD, MA, FACP, FACC, FSCAI, CCDS HPI: Chief Complaint: Reason for consultation: Syncope HPI 78 yo man, recently diagnosed with hypoxemia probably due to pulmonary fibrosis, who had a brief syncopal episode at home last night after he took off his oxygen and osvaldo from a recumbent position to carry out chores around the house. Brought to ER. Found be hypoxic and with a low normal BP. Has recently had hospitalization at [facility] after he presented with shortness of breath, hy poxia, and elevated troponin. W/u at [place] did not indicate any ac AL. Diagnosis was pulm fibrosis. Symptoms of shortness of breath have been progressive for the last 6 months. No leg swelling. No palp Review of Systems-Cardiology Review of Systems Constitutional: malaise, tiredness; No weight loss, No weight gain Eyes: No vision change Ears/Nose/Throat: No ear discharge, No nasal drainage, No recent hearing loss Respiratory: As described under HPI Cardiovascular: As described under HPI Gastrointestinal: No diarrhea, No nausea, No vomiting Genitourinary: No dysuria, No hematuria, No urine frequency changes Musculoskeletal: No back pain, No joint pain Skin: No ulcerations Psychiatric/Neurological: No seizure, No focal weakness, No syncope Hematologic: No bleeding abnormalities QUM-Adlnuy-Ivbkdi Hx Patient Social History Alcohol Use: Regular Use Recreational Drug Use: No Smoking Status: Never a Smoker Recent Foreign Travel: No Recent Infectious Disease Expo: No Hospitalization with Isolation: Denies Immunizations Up To Date Date of Pneumonia Vaccine: Aug 16, 2019 Date of Influenza Vaccine: Aug 16, 2019 Past Medical History PMH As described under Assessment. Family Medical History Family History: Abdominal aortic aneurysm G8 SISTER Arthritis 19 MOTHER Hypertension 19 MOTHER Allergies and Home Medications Allergies Coded Allergies: No Known Drug Allergies (Unverified , 09/18/11) Home Medications Acetaminophen 500 Mg Tablet, 500-1,000 MG PO Q4H PRN for PAIN-MILD, (Reported) Amitriptyline HCl 10 Mg Tablet, 10 MG PO HS, (Reported) Apixaban 5 Mg Tablet, 5 MG PO BID, (Reported) Aspirin 81 Mg Tablet.dr, 81 MG PO HS, (Reported) Atorvastatin Calcium 10 Mg Tablet, 10 MG PO HS, (Reported) LAST FILLED #90 04-06-19 Celecoxib 200 Mg Capsule, 200 MG PO DAILY PRN for ARTHRITIS PAIN, (Reported) Diethylpropion HCl 75 Mg Tablet.er, 75 MG PO DAILY, (Reported) LAST FILLED #30 06-19-19 Fluticasone Propionate 9.9 Ml Bryant.susp, 1 SPRAY NS DAILY PRN for ALLERGIES, (Reported) Metoprolol Succinate 50 Mg Tab.er.24h, 50 MG PO DAILY, (Reported) Omeprazole 20 Mg Capsule.dr, 20 MG PO DAILY, (Reported) Prednisone 20 Mg Tab, 20 MG PO DAILY, (Reported) Ranolazine 500 Mg Tab.er.12h, 500 MG PO BID, (Reported) Sildenafil Citrate 100 Mg Tablet, 100 MG PO DAILY PRN for ED, (Reported) Valsartan 320 Mg Tablet, 320 MG PO DAILY, (Reported) Patient Home Medication List Home Medication List Reviewed: Yes Physical Exam-Cardiology Physical Exam Vital Signs/I&O 08/18/19 08/18/19 08/18/19 08/18/19 06:00 07:00 07:00 08:00 Pulse 78 79 71 Resp 15 22 B/P (MAP) 124/80 (95) 120/80 (93) Pulse Ox 97 99 94 O2 Delivery NIV CPAP Nasal Cannula NIV Bilevel O2 Flow Rate 4.00 4.00 4.00 08/18/19 08/18/19 08/18/19 08/18/19 08:00 09:00 09:46 10:40 Temp 36.7 Pulse 87 95 Resp 39 16 B/P (MAP) 112/80 (91) 136/68 Pulse Ox 98 91 95 O2 Delivery Nasal Cannula Nasal Cannula Nasal Cannula Nasal Cannula O2 Flow Rate 4.00 5.00 3.00 3.00 Capillary Refill : Less Than 3 Seconds Data Review Labs Laboratory Tests 08/17/19 23:34: White Blood Count 12.5H, Red Blood Count 4.56, Hemoglobin 14.5, Hematocrit 44, Mean Corpuscular Volume 97, Mean Corpuscular Hemoglobin 32, Mean Corpuscular Hemoglobin Concent 33, Red Cell Distribution Width 15.2H, Platelet Count 277, Mean Platelet Volume 9.4, Neutrophils (%) (Auto) 86H, Lymphocytes (%) (Auto) 7L, Monocytes (%) (Auto) 7, Eosinophils (%) (Auto) 1, Basophils (%) (Auto) 0, Neutrophils # (Auto) 10.7H, Lymphocytes # (Auto) 0.8L, Monocytes # (Auto) 0.8, Eosinophils # (Auto) 0.1, Basophils # (Auto) 0.0, Prothrombin Time 13.6, INR Comment 1.0, Activated Partial Thromboplast Time 32, Sodium Level 143, Potassium Level 3.2L, Chloride Level 106, Carbon Dioxide Level 20L, Anion Gap 17H, Blood Urea Nitrogen 14, Creatinine 0.97, Estimat Glomerular Filtration Rate > 60, BUN/Creatinine Ratio 14, Glucose Level 179H, Calcium Level 9.9, Corrected Calcium 10.0, Magnesium Level 2.1, Total Bilirubin 0.7, Aspartate Amino Transf (AST/SGOT) 37H, Alanine Aminotransferase (ALT/SGPT) 41, Alkaline Phosphatase 84, Total Creatine Kinase 111, Creatine Kinase MB 3.7, Myoglobin 78.7, Troponin I 0.591*H, B-Type Natriuretic Peptide 124.8H, Total Protein 7.6, Albumin 3.9, Serum Alcohol 157H 08/18/19 03:04: White Blood Count 11.3H, Red Blood Count 4.21L, Hemoglobin 13.5, Hematocrit 41, Mean Corpuscular Volume 97, Mean Corpuscular Hemoglobin 32, Mean Corpuscular Hemoglobin Concent 33, Red Cell Distribution Width 15.2H, Platelet Count 262, Mean Platelet Volume 9.5, Neutrophils (%) (Auto) 89H, Lymphocytes (%) (Auto) 6L, Monocytes (%) (Auto) 5, Eosinophils (%) (Auto) 0, Basophils (%) (Auto) 0, Neutrophils # (Auto) 10.0H, Lymphocytes # (Auto) 0.7L, Monocytes # (Auto) 0.6, Eosinophils # (Auto) 0.0, Basophils # (Auto) 0.0, Sodium Level 142, Potassium Level 4.3, Chloride Level 107, Carbon Dioxide Level 23, Anion Gap 12, Blood Urea Nitrogen 15, Creatinine 0.81, Estimat Glomerular Filtration Rate > 60, BUN/Creatinine Ratio 19, Glucose Level 109H, Calcium Level 9.4, Corrected Calcium 9.8, Total Bilirubin 0.6, Aspartate Amino Transf (AST/SGOT) 34, Alanine Aminotransferase (ALT/SGPT) 36, Alkaline Phosphatase 70, Troponin I 0.674*H, Total Protein 6.8, Albumin 3.5, Neutrophils % (Manual) 92, Lymphocytes % (Manual) 4, Monocytes % (Manual) 4 08/18/19 03:40: Magnesium Level 2.1, Phosphorus Level 3.6 A/P-Cardiology Assessment/Admission Diagnosis Syncope on 08/17/19, also on 08/05/19: Although there is a h/o a 3-sec pause on ILR recordings of 05/18/19, recent syncopal episodes have not been found to be associated with arrhythmia. Syncope probably related to hypoxia Elevated troponin due to hypoxemia (type 2 AL) Shortness of breath since early 2018, progressive, recently diagnosed as pulm fibrosis at [facility] (Aug 2019) CAD and h/o cor stenting. Cardiac cath of 05/30/19 showed widely patent mid LAD stent ([id number] 2.5 x 24 placed in 2015), chronically occluded and RCA that is collateralized from LCA, LVEF 65%, normal LVEDP. Has since had another cath at [facility] by Dr Sánchez in Aug 2019. Details not available, but pt states he was told what we had told him on cath of May 2019 PAF. See under Stress echo history (given below). This is followed by his EP, Dr Ruth. ILR on 02/27/19 implanted and followed by Dr Ruth. This has shown occ PVC and one 3-sec pause during early hours of 05/18/19 (asymptomatic) Stress echo history: 1) 09/07/17: abnormal ECG (due to frequent ventricular couplets during exercise and idiovent rhythm vs intermittent LBBB in the recovery phase and up to 3-beat runs of WCT during recovery phase), but no distinct VT and no evidence of ischemia on echo. Subsequent cardiac cath of 10/26/17 was found to be stable and is summarized above. 2) 09/06/18: abnormal ECG due to runs of WCT of up to 3-beats in length and a self-resolving episode of PAF with RVR and aberrancy at peak exercise, but no evidence of ischemia on echo Echo of 09/07/17 showed normal LV systolic function and LVEF 60-65%, aortic valve sclerosis without aortic valve stenosis trivial AI, grade I diastolic dysfunction Hypertension, controlled Hyperlipidemia, treated with atorvastatin and followed by Dr Malhotra Impaired fasting glucose Hypochromic, microcytic anemia of undetermined etiology (negative endoscopy, upper and lower, in January 2016) being followed by Dr Malhotra Abnormal ECG. ECG of 02/12/16 shows NSR with diffuse nonspecific T abn No evidence of AAA on an abd ao screening scan of 03/30/17 Suspected diverticular bleed in late April 2016 treated with blood transfusions by Dr Malhotra and aspirin has been lowered to only twice a week with continuing daily Plavix. No further clinical bleed Mild bilateral carotid arterial disease on u/s of May 2016 JOSSUE treated with CPAP Obesity with BMI approx 32 Mild transaminase elevation on lab work of 10/26/17 Discussion and Recomendations * This is a complex diagnostic and management problem * We are trying to get his records together from [facility]. I discussed his case with Dr Carter of the [facility] and with [place] [facility] [place] We have advised him to stay in the hosp for further observation and treatment. He refuses. States will return to the hosp in case of any recurrence of symptoms or any new symptoms. States will now be compliant with supplemental oxygen use * Outpt cardiac f/u is advised. He has an apptt for next week Clinical Quality Measures DVT/VTE Risk/Contraindication: Risk Factor Score Per Nursin RFS Level Per Nursing on Admit: 4+=Very High DAVID FLANAGAN MD FACP FAC CCDS Aug 18, 2019 17:23 POS
== END 2019-08-18 10:00 | disposition home or self-care (01) ==
LOC: EDUNIT# 23:23 → ER 23:24 → ICU 23:25 → UNDOADMOB 08-18 00:30 → ICU 08-18 00:30 → UNDODISOB 08-18 10:47
PROVIDERS: ADMIT Internal Medicine; ATTEND Internal Medicine
DX: R55 Syncope and collapse (principal); I11.0 Hypertensive heart disease with heart failure; I50.9 Heart failure, unspecified; I25.10 Atherosclerotic heart disease of native coronary artery without angina pectoris; I21.4 Non-ST elevation (NSTEMI) myocardial infarction; D50.9 Iron deficiency anemia, unspecified; E78.5 Hyperlipidemia, unspecified; E66.9 Obesity, unspecified; E78.00 Pure hypercholesterolemia, unspecified; R74.0 Nonspecific elevation of levels of transaminase and lactic acid dehydrogenase [LDH]; G47.33 Obstructive sleep apnea (adult) (pediatric); K21.9 Gastro-esophageal reflux disease without esophagitis; M19.90 Unspecified osteoarthritis, unspecified site; J84.10 Pulmonary fibrosis, unspecified; F10.129 Alcohol abuse with intoxication, unspecified; E87.6 Hypokalemia; Z79.899 Other long term (current) drug therapy; Z90.89 Acquired absence of other organs; Z68.32 Body mass index [BMI] 32.0-32.9, adult; Z79.82 Long term (current) use of aspirin; Z95.818 Presence of other cardiac implants and grafts; Z96.611 Presence of right artificial shoulder joint; Z95.1 Presence of aortocoronary bypass graft; Z82.49 Family history of ischemic heart disease and other diseases of the circulatory system; Z82.61 Family history of arthritis
CPT/HCPCS: 36415; 71045; 80053; 80320; 82550; 82553; 83735; 83874; 83880; 84100; 84484; 85007; 85025; 85027; 85610; 85730; 93005; 93041

== ENCOUNTER → 2019-08-29 | Outpatient (CLI) | payer MEDICARE, OTHER ==
[~2019-08-29] MED LIST changes: +ACET-2267 PO; +AMIT10TA6 PO; +ATOR10TA66 PO; +CATHETER FLUSH 10 ML SYR IV PRN; +CELE200C PO; +DIET75TA31 PO; +FLUT9.9S NS; +HOLD METFORMIN - RECEIVED CONTRAST 20 ML VIAL IV SCH; +IOHEXOL 350 MG/ML 100 ML (OMNIPAQUE 350) VIAL IV ONE; +METO-352 PO; +NS 100 ML (IVPB) BAG IV ONE; +OMEP20CA13 PO; +PRD20T PO; +RANO500T5 PO; +SILD100T67 PO
--- NOTE | 2019-08-29 14:18 | Diagnostic Imaging Report ---
PROCEDURE: CT angiography of the chest with contrast. TECHNIQUE: Multiple contiguous axial images were obtained through the chest after uneventful bolus administration of intravenous contrast. 3D reconstructed CTA MIP acquisitions were also performed. Auto Exposure Controls were utilized during the CT exam to meet ALARA standards for radiation dose reduction. INDICATION: Shortness of air, cough, pulmonary fibrosis. COMPARISON: Limited overlapped views of the chest obtained during an abdominal CT 02/15/2017. FINDINGS: Contrast media is almost entirely systemic and within the left heart. The aorta is patent and nonacute. No definite large central pulmonary arterial embolus however pulmonary arterial luminal patency cannot be adequately addressed. No thoracic effusion. There is a small hiatal hernia. There is mild mediastinal lymphadenopathy of uncertain etiology. The largest node is prominent in the lower right paratracheal space measuring 2.3 x 1.9 cm. A few subcentimeter hilar lymph nodes. Five lobe fibrotic lung disease has developed. While it is found diffusely, it is most severe in a subpleural and basilar distribution. No bronchiectasis. No blebs, bullous disease or air cysts. No effusion or pneumothorax. Right shoulder replacement noted. Unhealed right posterolateral fifth and sixth rib fractures appeared recent. Small hiatal hernia. Visualized upper abdomen nonacute. IMPRESSION: 1. Patent aorta. Nondiagnostic evaluation of the pulmonary arteries. Five lobe severe interstitial lung disease is a new finding from prior. 2. Postero-right lateral fifth and sixth rib fractures without healing appeared recent. Dictated by: Dictated on workstation # [id number]
== END ==
LOC: RAD 11:52
PROVIDERS: ATTEND Nurse Practitioner Family
DX: S22.41XA Multiple fractures of ribs, right side, initial encounter for closed fracture (principal); J84.10 Pulmonary fibrosis, unspecified
CPT/HCPCS: 71275

== ENCOUNTER → 2019-09-11 | Outpatient (CLI) | payer MEDICARE, OTHER ==
[~2019-09-11] MED LIST changes: -CATHETER FLUSH 10 ML SYR IV PRN; -HOLD METFORMIN - RECEIVED CONTRAST 20 ML VIAL IV SCH; -IOHEXOL 350 MG/ML 100 ML (OMNIPAQUE 350) VIAL IV ONE; -NS 100 ML (IVPB) BAG IV ONE; +RT-ALBUTEROL SULF 2.5 MG/3 ML PRE-MIX VIAL INH ONE
== END ==
LOC: RT 10:39
PROVIDERS: ATTEND Nurse Practitioner Family
DX: J98.4 Other disorders of lung (principal); R06.02 Shortness of breath; R09.02 Hypoxemia; G47.33 Obstructive sleep apnea (adult) (pediatric)
CPT/HCPCS: 94060; 94726; 94729

== ENCOUNTER → 2019-09-12 | Outpatient (CLI) | payer MEDICARE, OTHER ==
[~2019-09-12] MED LIST changes: -RT-ALBUTEROL SULF 2.5 MG/3 ML PRE-MIX VIAL INH ONE
[2019-09-12 10:36] LABS: BASOPHILS % (AUTO) 0 % (0-10); EOSINOPHILS # (AUTO) 0.3 10^3/uL (0.0-0.3); EOSINOPHILS % (AUTO) 3 % (0-10); HEMATOCRIT 46 % (40-54); LYMPHOCYTES # (AUTO) 0.8 X 10^3 (1.0-4.0); LYMPHOCYTES % (AUTO) 6 % (12-44); MEAN CORPUSCULAR HEMOGLOBIN 31 PG (25-34); MEAN CORPUSCULAR HGB CONC 32 G/DL (32-36); MEAN CORPUSCULAR VOLUME 96 FL (80-99); MEAN PLATELET VOLUME 9.3 FL (7.4-10.4); MONOCYTES # (AUTO) 0.6 X 10^3 (0.0-1.0); MONOCYTES % (AUTO) 4 % (0-12); NEUTROPHILS # (AUTO) 11.6 X 10^3 (1.8-7.8); NEUTROPHILS % (AUTO) 87 % (42-75); PLATELET COUNT 247 10^3/uL (130-400); RED CELL DISTRIBUTION WIDTH 14.9 % (10.0-14.5); WHITE BLOOD COUNT 13.4 10^3/uL (4.3-11.0)
[2019-09-12 11:03] LABS: BAND NEUTROPHILS 1 %; BASOPHILS % (MANUAL) 0 %; EOSINOPHILS % (MANUAL) 3 %; LYMPHOCYTES % (MANUAL) 3 %; MONOCYTES % (MANUAL) 3 %; NEUTROPHILS % (MANUAL) 90 %; RBC MORPH NORMAL
[2019-09-12 11:06] LABS: BUN/CREATININE RATIO 17; CARBON DIOXIDE 23 MMOL/L (21-32); CHLORIDE 103 MMOL/L (98-107); CREATININE SERUM 0.94 MG/DL (0.60-1.30); GFR ESTIMATED > 60; GLUCOSE 140 MG/DL (70-105); POTASSIUM 4.3 MMOL/L (3.6-5.0); SODIUM 139 MMOL/L (135-145)
== END ==
LOC: LAB 10:14
PROVIDERS: ATTEND Internal Medicine Critical Care Medicine
DX: J98.4 Other disorders of lung (principal); G47.33 Obstructive sleep apnea (adult) (pediatric); G47.36 Sleep related hypoventilation in conditions classified elsewhere
CPT/HCPCS: 36415; 80048; 82565; 83880; 84520; 85007; 85027

== ENCOUNTER 2019-09-19 09:30 | Outpatient (RCR) | payer MEDICARE, OTHER ==
[2019-09-13 09:44] VITALS: BP 115/40
[~2019-09-19] VITALS: Ht 172.7 cm; Wt 88.0 kg
[2019-09-19 09:20] VITALS: BP 120/60
[~2019-09-19 09:30] MED LIST changes: -OMEP20CA13 PO; +OMEP20CA18 PO; -TRAZ-190 PO; +TRAZ-227 PO
[2019-09-19 10:33] VITALS: BP 116/40
[2019-09-21 09:30] VITALS: BP 104/60
[2019-09-26] MEDS ORDERED: CETI10TA21 PO (10:03)
[2019-09-26] MEDS ORDERED: METO-351 PO (10:03)
== END 2019-09-29 | disposition home or self-care (01) ==
LOC: PULM 09:30
PROVIDERS: ATTEND Nurse Practitioner Family
DX: J98.4 Other disorders of lung (principal); G47.33 Obstructive sleep apnea (adult) (pediatric)
CPT/HCPCS: 99211